=== PATIENT | female | born 1950 | race Caucasian/White ===

== ENCOUNTER → 2017-07-11 | Outpatient (CLI) | payer MEDICARE, OTHER ==
[2017-07-11 18:09] LABS: Blood Urea Nitrogen 14 mg/dL (7-17); Non-African American GFR(MDRD) >60 (>60 ml/min/1.73 sqM)
--- NOTE | 2017-07-11 19:10 | CT ---
EXAMINATION TYPE: CT abdomen wo/w con DATE OF EXAM: 07/11/2017 COMPARISON: 06/11/2015 HISTORY: Follow up for renal CA. CT DLP: 1128.7 mGycm Automated exposure control for dose reduction was used. TECHNIQUE: Helical acquisition of images was performed from the lung bases through the top of iliac crest to include entire abdomen. CONTRAST: Performed with Oral Contrast and without and with IV Contrast, patient injected with 100 mL of Omnipa que 300. FINDINGS: \Lung bases are clear of consolidation. There is no pleural effusion. Heart size is normal. Liver spleen pancreas appear normal. Bile ducts are not dilated. Gallbladder is contracted. There is no adrenal mass. Kidneys have normal size. There is some cortical thinning on the anterior r ight kidney. This appears decreased compared to last exam. There is no hydronephrosis. There is no ev idence of a renal mass. Ureters are not dilated. There is no retroperitoneal adenopathy. Abdominal ao rta is atheromatous. I see no intestinal wall thickening. There are no dilated loops. Appendix appears normal. Stomach zahida ears normal. I see no focal bone destruction. IMPRESSION: THERE IS FOCAL ATROPHY OF THE ANTERIOR RIGHT KIDNEY. NO EVIDENCE OF RECURRENT TUMOR. THE AREA OF LASHANDA ICAL THINNING MEASURES 2 CM IN LENGTH AND APPEARS DECREASED IN SIZE COMPARED TO LAST EXAM. ATHEROSCLEROTIC VASCULAR DISEASE.
== END | disposition home or self-care (01) ==
LOC: RADCTMAIN 17:35
PROVIDERS: ATTEND Urology
DX: N26.1 Atrophy of kidney (terminal) (principal); C64.1 Malignant neoplasm of right kidney, except renal pelvis; I70.90 Unspecified atherosclerosis
CPT/HCPCS: 82565; 84520; 74170; 36415; Q9967

== ENCOUNTER → 2017-10-17 | Outpatient (CLI) | payer MEDICARE, OTHER ==
--- NOTE | 2017-10-18 04:59 | CONS ---
CONSULTATION This is a consultation for obstructive sleep apnea. This is a 67-year-old female patient who was diagnosed having obstructive sleep apnea more than 5 years ago. The patient has a CPAP unit, a ResMed S9 series, which is set at a pressure of 6 cm of water. The original sleep study was done in June 2013. This was done at [facility] in [place]. The patient demonstrated a total of 2 central apneas, 0 obstructive apneas, 1 mixed apnea, and 26 partial obstructive apneas and apnea-hypopnea index was 5.9. The patient had an arousal index of 7.3. Lowest pulse ox was 86% and based on that, the patient was placed on a CPAP pressure of 6 cm of water. She is using a Mirage FX nasal pillow. Over the past 5 years, the patient did not have any regular follow up nor she had seen her sleep physician and she is coming in for some difficulty tolerating her CPAP machine. Apparently the patient has been waking up quite a bit in the middle of the night and her treatment has not been as successful as it was a few years back. She is not sure if she has gained any significant amount of weight over the years. She is a chronic smoker and she has underlying COPD. At times she is snoring while on treatment and she has been told to stop breathing during sleep. She is waking up with dry mouth. She goes to bed between 8 to 9 p.m. and wakes up at 4 a.m. in the morning. She is currently retired averaging more than 6 hours of CPAP use per night based on the compliance data that was collected over the past 30 days. PAST MEDICAL HISTORY: 1. Obstructive sleep apnea. 2. COPD. 3. Hyperlipidemia. 4. Kidney cancer with a previous right nephrectomy. SURGICAL HISTORY: Surgical history includes right nephrectomy partial, tubal ligation, feet surgery bilaterally. ALLERGIES: Allergies are not known of. OUTPATIENT MEDICATION LIST: Outpatient medication list includes fish oil, benazepril 40 mg p.o. q. day, Norvasc 10 mg p.o. q. day, Voltaren 75 mg p.o. q. day and Zocor 20 mg p.o. q. day. SOCIAL HISTORY: Chronic smoker, 1 pack of cigarettes a day. No history of alcoholism. No history of IV drugs. FAMILY HISTORY: Noncontributory. It is negative for obstructive sleep apnea. REVIEW OF SYSTEMS: Twelve-point review of system was done. Positive findings were all mentioned above in the history of present illness. PHYSICAL EXAMINATION: BP is 143/81, pulse 78, respirations 20, temperature 97.8 saturation 95% on room air. Weight is 180. Height is 5 feet 4 inches. Neck size 14. Granville score 17. BMI 30.8. GENERAL APPEARANCE: Calm, comfortable. She is in no acute distress. Head is atraumatic, normocephalic. Neck is short, supple. Crowding of posterior pharynx with micrognathia. LUNGS: Clear to auscultation. HEART: Sounds regular rate and rhythm. Normal S1, S2. No S3, S4. No murmurs. ABDOMEN: Soft, nontender. No organomegaly. EXTREMITIES: No edema. No cyanosis or clubbing. IMPRESSION: 1. Mild obstructive sleep apnea based on the sleep study that was done in 2012. The patient has an apnea-hypopnea index of 5.9. The patient is receiving CPAP therapy at a pressure of 6 cm of water. Treatment has been suboptimal as the patient is having difficulties in tolerating the CPAP and she is waking up constantly in the middle of the night and she has becoming more somnolent and sleepy. Granville score is 17. 2. Hypersomnia, rule out suboptimal treatment with CPAP therapy. 3. Chronic obstructive pulmonary disease. 4. Smoking. 5. Hyperlipidemia. 6. History of renal cell cancer with a partial nephrectomy on the right. PLAN: 1. We will do a home sleep study to assess the presence and severity of obstructive sleep apnea. 2. It is very much likely the patient will need a followup CPAP titration to adjust the pressures. We will go in a stepwise fashion. Initially I would like to confirm the presence of sleep apnea knowing that the disease was very mild at baseline and if present and if it is severe will make CPAP adjustments. MMODL / IJN: [id number] /
== END | disposition home or self-care (01) ==
LOC: SLEEP 15:54
PROVIDERS: ATTEND Internal Medicine Critical Care Medicine
DX: G47.33 Obstructive sleep apnea (adult) (pediatric) (principal); G47.10 Hypersomnia, unspecified; J44.9 Chronic obstructive pulmonary disease, unspecified; F17.200 Nicotine dependence, unspecified, uncomplicated; E78.5 Hyperlipidemia, unspecified; Z85.528 Personal history of other malignant neoplasm of kidney; Z90.5 Acquired absence of kidney; Z79.1 Long term (current) use of non-steroidal anti-inflammatories (NSAID); Z79.899 Other long term (current) drug therapy
CPT/HCPCS: 99204; 99211

== ENCOUNTER → 2017-12-12 | Outpatient (CLI) | payer MEDICARE, OTHER ==
--- NOTE | 2017-12-12 17:52 | PN ---
PROGRESS NOTE This is a 67-year-old female patient with known history of mild obstructive sleep apnea that was diagnosed back in 2012. At that time the patient had an AHI of 5.9 and she was offered CPAP therapy. She was placed on a CPAP pressure of 6 cm of water. The patient benefitted from the treatment, and over the past 4 years the patient has been very regularly using her CPAP machine without any interruption. Recently she came in for re-evaluation. I was interested to see if the patient had any residual obstructive sleep apnea. Based on that, I performed a home sleep study. The patient demonstrated nocturnal oxygen desaturation where she spent approximately half of the sleep time at a pulse ox of 90% and below. Her average pulse ox was 89% and her lowest pulse ox was 84%. Nevertheless, her AHI was less than 5; specifically 3.3. I discussed the results of the sleep study with the patient. The patient wants to continue with her CPAP therapy. She feels very comfortable and she reports her sleep quality being better while on CPAP. Based on that, she wants to continue with the treatment and she decided not to give up the treatment at this point in time. She is in need of equipment, which I do not think she will qualify for through the [facility]. I gave her samples of AirFit P10 nose pillows to use along with her ResMed S9 CPAP unit which is set at a pressure of 6 cm of water with a C-flex of 3. She is also known to have renal cell carcinoma with a previous nephrectomy and she has hyperlipidemia and continues to smoke cigarettes. Her weight has been stable for now. BP is 146/77, pulse 80, respirations 16, temperature 98.4, saturation 95% on room air. BMI 30.7. Weight is 179. GENERAL APPEARANCE: Calm, comfortable. No acute distress. Head is atraumatic, normocephalic. Neck is supple. There is no JVD. No goiter or neck masses. LUNGS: Clear to auscultation. Heart sounds are regular rate and rhythm. Normal S1, S2. No S3, S4. No murmurs. Abdomen is soft, nontender. No organomegaly. EXTREMITIES: No edema. No cyanosis or clubbing. NEUROLOGIC: The patient is alert and oriented x3. There is no focal neurological deficit. PSYCHIATRIC: Negative for anxiety or depression. SKIN: Negative for any wounds or ulceration. IMPRESSION: 1. Obstructive sleep apnea, mild at baseline, with an AHI of 5.9. Repeat home sleep study showed no major sleep breathing disorder, where her AHI dropped down to 3.3. Nevertheless, the patient continues to benefit from the treatment and she wants to stay on the treatment, knowing that her sleep quality gets worse while off treatment. 2. Chronic obstructive pulmonary disease. 3. Nocturnal oxygen desaturation, as the patient spent approximately 53% of sleep time with a pulse ox of less than 90%. 4. Hyperlipidemia. 5. Renal cell carcinoma with a previous nephrectomy. PLAN: I do not see any problems with this patient concerning her CPAP treatment. Even though her sleep apnea is mild, the patient continues to benefit from the treatment. I offered her AirFit P10 nose pillows and I gave her 2 sample masks. I also gave her the appropriate filters. She will continue using her CPAP and she will see me back in a year's time in followup. GABRIELA / SVEN: [id number] /
== END | disposition home or self-care (01) ==
LOC: SLEEP 16:21
PROVIDERS: ATTEND Internal Medicine Critical Care Medicine
DX: Z53.9 Procedure and treatment not carried out, unspecified reason (principal)

== ENCOUNTER 2018-04-15 10:56 | Emergency (ER) | payer MEDICARE, OTHER ==
[2018-04-15] MEDS ORDERED: LORazepam 2 MG/ML INJ IV STA (11:15)
[2018-04-15] MEDS ORDERED: SODIUM CHLORIDE 0.9% 1,000 ML IV STA (11:15)
[2018-04-15] MEDS ORDERED: ONDANSETRON 4 MG/2 ML VIAL IVP STA (11:15)
[2018-04-15] MEDS ORDERED: MECLIZINE 12.5 MG TAB PO STA (11:15)
--- NOTE | 2018-04-15 11:18 | ED ---
General Adult HPI - General Chief complaint: Dizziness Stated complaint: dizziness Time Seen by Provider: 04/15/18 10:57 Source: patient, EMS, RN notes reviewed, old records reviewed Mode of arrival: EMS Limitations: no limitations - History of Present Illness Initial comments: 67-year-old female presenting with sudden onset lightheadedness or vertigo. Patient was standing in her kitchen when she suddenly developed vertigo symptoms. She states the room was spinning. She felt significant nausea with several episodes of vomiting. Patient states she also had one episode of diarrhea. At the time my evaluation patient states she still feels quite lightheaded. She has persistent nausea. She also complains of generalized weakness. Denies focal weakness or numbness. Denies any pain complaints. Denies headache. Denies chest pain. Denies abdominal pain. Denies extremity pain. Patient has past medical history of hypertension and hypercholesterolemia. - Related Data Home Medications Medication Instructions Recorded Confirmed Benazepril HCl 40 mg PO DAILY 04/15/18 04/15/18 Diclofenac Sodium [Voltaren] 75 mg PO DAILY PRN 04/15/18 04/15/18 Fish Oil/Dha/Epa [Fish Oil 1,200 1 cap PO DAILY 04/15/18 04/15/18 mg Fish Oil] Omeprazole 20 mg PO DAILY 04/15/18 04/15/18 Simvastatin [Zocor] 40 mg PO HS 04/15/18 04/15/18 amLODIPine [Norvasc] 10 mg PO DAILY 04/15/18 04/15/18 Previous Rx's Medication Instructions Recorded Meclizine [Antivert] 25 mg PO TID PRN #30 tab 04/15/18 Allergies Allergy/AdvReac Type Severity Reaction Status Date / Time No Known Allergies Allergy Verified 04/15/18 12:42 Review of Systems ROS Statement: Those systems with pertinent positive or pertinent negative responses have been documented in the HPI. ROS Other: All systems not noted in ROS Statement are negative. Past Medical History Past Medical History: Cancer, Hypertension, Osteoarthritis (OA) Additional Past Medical History / Comment(s): kidney cancer History of Any Multi-Drug Resistant Organisms: None Reported Past Surgical History: Orthopedic Surgery, Tubal Ligation Additional Past Surgical History / Comment(s): right kidney surgery Past Psychological History: No Psychological Hx Reported Smoking Status: Current every day smoker Past Alcohol Use History: None Reported Past Drug Use History: None Reported General Exam Limitations: no limitations General appearance: alert, in no apparent distress Head exam: Present: atraumatic, normocephalic Eye exam: Present: normal appearance, PERRL, EOMI. Absent: nystagmus ENT exam: Present: normal exam, mucous membranes moist Neck exam: Present: normal inspection. Absent: tenderness, meningismus Respiratory exam: Present: normal lung sounds bilaterally, respiratory distress Cardiovascular Exam: Present: regular rate, normal rhythm GI/Abdominal exam: Present: soft. Absent: distended, tenderness, guarding Extremities exam: Present: normal inspection, normal capillary refill, other ( Distal pulses 2+). Absent: pedal edema Back exam: Present: normal inspection, full ROM Neurological exam: Present: alert, oriented X3, CN II-XII intact, other (No ataxia in the upper extremities, finger-nose is normal.). Absent: motor sensory deficit Psychiatric exam: Present: normal affect, normal mood Skin exam: Present: warm, dry, intact. Absent: cyanosis, diaphoretic Course Vital Signs 04/15/18 04/15/18 10:57 12:30 Temperature 96.8 F L Pulse Rate 82 71 Respiratory 20 20 Rate Blood Pressure 182/84 143/69 O2 Sat by Pulse 96 99 Oximetry EKG Findings - EKG Comments: EKG Findings:: EKG: Normal sinus rhythm, rate of 64, TX interval 158, QRS duration 84, QTC 443, no ST segment elevation or depression. Medical Decision Making - Medical Decision Making 67-year-old female presenting with signs and symptoms suggestive of vertigo. Patient has a nonfocal neurologic exam. No ataxia. Head CT is obtained, negative for intracranial hemorrhage or mass effect. There is suggestion of a left mastoiditis. Patient clinically does not have mastoiditis. There is no erythema, no tenderness over the left mastoid. Chest x-ray is negative. Hemoglobin stable at 16, normal white blood cell count, normal CMP, normal lactic acid, negative troponin. Urinalysis is negative. Patient is given meclizine and Zofran, and Ativan. She is also given normal saline. On reevaluation she is feeling much better. She is reevaluated, neurologic standpoint, she has no ataxia, nonfocal exam. Symptoms are nearly completely resolved. She is offered observation for continued symptomatically treatment, she declines, she will prefer to be discharged home and will return with worsening or changing symptoms. - Lab Data Result diagrams: 04/15/18 11:30 04/15/18 11:30 Lab Results 04/15/18 04/15/18 04/15/18 Range/Units 11:30 11:30 11:30 WBC 7.3 (3.8-10.6) k/uL RBC 5.15 (3.80-5.40) m/uL Hgb 16.1 H (11.4-16.0) gm/dL Hct 49.4 H (34.0-46.0) % MCV 96.0 (80.0-100.0) fL MCH 31.3 (25.0-35.0) pg MCHC 32.6 (31.0-37.0) g/dL RDW 12.8 (11.5-15.5) % Plt Count 228 (150-450) k/uL Neutrophils % 68 % Lymphocytes % 24 % Monocytes % 4 % Eosinophils % 2 % Basophils % 0 % Neutrophils # 4.9 (1.3-7.7) k/uL Lymphocytes # 1.7 (1.0-4.8) k/uL Monocytes # 0.3 (0-1.0) k/uL Eosinophils # 0.2 (0-0.7) k/uL Basophils # 0.0 (0-0.2) k/uL Sodium 141 (137-145) mmol/L Potassium 4.5 (3.5-5.1) mmol/L Chloride 107 (98-107) mmol/L Carbon Dioxide 24 (22-30) mmol/L Anion Gap 10 mmol/L BUN 12 (7-17) mg/dL Creatinine 0.56 (0.52-1.04) mg/dL Est GFR (CKD-EPI)AfAm >90 (>60 ml/min/1.73 sqM) Est GFR (CKD-EPI)NonAf >90 (>60 ml/min/1.73 sqM) Glucose 147 H (74-99) mg/dL Plasma Lactic Acid Fernie 1.4 (0.7-2.0) mmol/L Calcium 9.5 (8.4-10.2) mg/dL Total Bilirubin 0.7 (0.2-1.3) mg/dL AST 36 (14-36) U/L ALT 35 (9-52) U/L Alkaline Phosphatase 75 (38-126) U/L Troponin I (0.000-0.034) ng/mL Total Protein 7.6 (6.3-8.2) g/dL Albumin 4.6 (3.5-5.0) g/dL Urine Color Urine Appearance (Clear) Urine pH (5.0-8.0) Ur Specific Holiday (1.001-1.035) Urine Protein (Negative) Urine Glucose (UA) (Negative) Urine Ketones (Negative) Urine Blood (Negative) Urine Nitrite (Negative) Urine Bilirubin (Negative) Urine Urobilinogen (<2.0) mg/dL Ur Leukocyte Esterase (Negative) 04/15/18 04/15/18 Range/Units 11:30 12:17 WBC (3.8-10.6) k/uL RBC (3.80-5.40) m/uL Hgb (11.4-16.0) gm/dL Hct (34.0-46.0) % MCV (80.0-100.0) fL MCH (25.0-35.0) pg MCHC (31.0-37.0) g/dL RDW (11.5-15.5) % Plt Count (150-450) k/uL Neutrophils % % Lymphocytes % % Monocytes % % Eosinophils % % Basophils % % Neutrophils # (1.3-7.7) k/uL Lymphocytes # (1.0-4.8) k/uL Monocytes # (0-1.0) k/uL Eosinophils # (0-0.7) k/uL Basophils # (0-0.2) k/uL Sodium (137-145) mmol/L Potassium (3.5-5.1) mmol/L Chloride (98-107) mmol/L Carbon Dioxide (22-30) mmol/L Anion Gap mmol/L BUN (7-17) mg/dL Creatinine (0.52-1.04) mg/dL Est GFR (CKD-EPI)AfAm (>60 ml/min/1.73 sqM) Est GFR (CKD-EPI)NonAf (>60 ml/min/1.73 sqM) Glucose (74-99) mg/dL Plasma Lactic Acid Fernie (0.7-2.0) mmol/L Calcium (8.4-10.2) mg/dL Total Bilirubin (0.2-1.3) mg/dL AST (14-36) U/L ALT (9-52) U/L Alkaline Phosphatase (38-126) U/L Troponin I <0.012 (0.000-0.034) ng/mL Total Protein (6.3-8.2) g/dL Albumin (3.5-5.0) g/dL Urine Color Light Yellow Urine Appearance Clear (Clear) Urine pH 7.5 (5.0-8.0) Ur Specific Holiday 1.009 (1.001-1.035) Urine Protein Negative (Negative) Urine Glucose (UA) Negative (Negative) Urine Ketones Negative (Negative) Urine Blood Negative (Negative) Urine Nitrite Negative (Negative) Urine Bilirubin Negative (Negative) Urine Urobilinogen <2.0 (<2.0) mg/dL Ur Leukocyte Esterase Negative (Negative) Disposition Clinical Impression: Vertigo Disposition: HOME SELF-CARE Condition: Good Instructions: Dizziness (ED), Vertigo (ED) Prescriptions: Meclizine [Antivert] 25 mg PO TID PRN #30 tab PRN Reason: Vertigo Is patient prescribed a controlled substance at d/c from ED?: No Referrals: Suleman Yadav MD [Primary Care Provider] - 1-2 days Time of Disposition: 13:46
[2018-04-15 11:51] LABS: Basophils % (A) 0 %; Eosinophils # (A) 0.2 k/uL (0-0.7); Eosinophils % (A) 2 %; HCT 49.4 % (34.0-46.0); HGB 16.1 gm/dL (11.4-16.0); Lymphocytes # (A) 1.7 k/uL (1.0-4.8); Lymphocytes % (A) 24 %; MCH 31.3 pg (25.0-35.0); MCHC 32.6 g/dL (31.0-37.0); Mean Platelet Volume 6.8; Monocytes # (A) 0.3 k/uL (0-1.0); Monocytes % (A) 4 %; Neutrophils # (A) 4.9 k/uL (1.3-7.7); Neutrophils % (A) 68 %; Platelet Count 228 k/uL (150-450); RBC 5.15 m/uL (3.80-5.40); RDW 12.8 % (11.5-15.5); WBC 7.3 k/uL (3.8-10.6)
[2018-04-15 12:09] LABS: Albumin 4.6 g/dL (3.5-5.0); Anion Gap 10 mmol/L; Calcium 9.5 mg/dL (8.4-10.2); Carbon Dioxide 24 mmol/L (22-30); Chloride 107 mmol/L (98-107); Glucose 147 mg/dL (74-99); Sodium 141 mmol/L (137-145); Total Bilirubin 0.7 mg/dL (0.2-1.3); Total Protein 7.6 g/dL (6.3-8.2)
[2018-04-15 12:10] LABS: ALT 35 U/L (9-52); AST 36 U/L (14-36); Alkaline Phosphatase 75 U/L (38-126); Blood Urea Nitrogen 12 mg/dL (7-17); Potassium 4.5 mmol/L (3.5-5.1)
--- NOTE | 2018-04-15 12:12 | CT ---
EXAMINATION TYPE: CT brain wo con DATE OF EXAM: 04/15/2018 COMPARISON: NONE HISTORY: Dizziness and nausea. History of renal cancer CT DLP: 1047.1 mGycm Automated exposure control for dose reduction was used. FINDINGS: There is mild atrophy. There is diffuse periventricular white matter lucency consistent with chronic white matter ischemic change. There is no focal lesion, mass effect or midline shift identified I do not see evidence of intracranial blood. There is some mucoperiosteal thickening involving the ethmoid sinuses. There is some fluid in the lef t mastoid air cells. The bony calvarium is intact. IMPRESSION: 1. NO ACUTE INTRACRANIAL ABNORMALITY. 2. MILD DEGENERATIVE CHANGE. 3. 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 4. LEFT-SIDED MASTOIDITIS.
--- NOTE | 2018-04-15 12:14 | XR ---
EXAMINATION TYPE: XR chest 2V DATE OF EXAM: 04/15/2018 HISTORY: syncope. REFERENCE: NONE. FINDINGS: There is minimal atelectasis at the left lung base. The lungs are otherwise clear. Pleural spaces are clear. The heart is not enlarged. IMPRESSION: MINIMAL ATELECTASIS, LEFT LUNG BASE.
[2018-04-15 12:45] LABS: Appearance,Urine Clear (Clear); Bilirubin,Urine Negative (Negative); Blood,Urine Negative (Negative); Color,Urine Light Yellow; Glucose,Urine (UA) Negative (Negative); Ketones,Urine Negative (Negative); Leukocyte Esterase,Urine Negative (Negative); Nitrite,Urine Negative (Negative); PH, Urine 7.5 (5.0-8.0); Protein,Urine Negative (Negative); Specific Gravity,Urine 1.009 (1.001-1.035); Urobilinogen,Urine <2.0 mg/dL (<2.0)
[2018-04-15 14:18] VITALS: BP 132/77; PULSE 70; RESP 18; TEMP 98
== END 2018-04-15 14:19 | disposition home or self-care (01) ==
LOC: EC 10:56
DX: R42 Dizziness and giddiness (principal); R11.2 Nausea with vomiting, unspecified; E78.00 Pure hypercholesterolemia, unspecified; I10 Essential (primary) hypertension; F17.200 Nicotine dependence, unspecified, uncomplicated; Z85.528 Personal history of other malignant neoplasm of kidney; Z53.29 Procedure and treatment not carried out because of patient's decision for other reasons; Z79.899 Other long term (current) drug therapy
CPT/HCPCS: 36415; 93005; 80053; 83605; 84484; 85025; 81003; 71046; 70450; 99285; 96374; 96375; 96361; J2060; J2405

== ENCOUNTER → 2018-06-27 | Outpatient (CLI) | payer MEDICARE, OTHER ==
[2018-06-27 13:56] LABS: Blood Urea Nitrogen 16 mg/dL (7-17)
--- NOTE | 2018-06-27 15:57 | XR ---
EXAMINATION TYPE: XR chest 2V DATE OF EXAM: 06/27/2018 COMPARISON: 04/15/2018 HISTORY: Renal cell carcinoma. Surveillance. TECHNIQUE: Frontal and lateral views of the chest are obtained. FINDINGS: There is no focal air space opacity, pleural effusion, or pneumothorax seen. There is mini mal left basilar atelectasis at both costophrenic angle, unchanged from the prior. There is a mild S- shaped scoliotic curvature of the thoracolumbar spine. The cardiac silhouette size is within normal l imits. The osseous structures are intact. IMPRESSION: Persistent minimal left basilar subsegmental atelectasis. No acute cardiopulmonary proces s.
--- NOTE | 2018-06-27 16:47 | CT ---
EXAMINATION TYPE: CT abdomen w con DATE OF EXAM: 06/27/2018 COMPARISON: Comparison to CT abdomen pelvis 07/11/2017 HISTORY: Rt Renal Cell Carcinoma CT DLP: 785.6 mGycm Automated exposure control for dose reduction was used. TECHNIQUE: Helical acquisition of images was performed from the lung bases through the top of iliac crest to include entire abdomen. CONTRAST: Performed with Oral Contrast and with IV Contrast, patient injected with 100 mL of Isovue 300. FINDINGS: LUNG BASES: No significant abnormality is appreciated. LIVER/GB: Liver shows low attenuation which may be due to hepatic steatosis. Gallbladder is contracte d.. PANCREAS: No significant abnormality is seen. SPLEEN: No significant abnormality is seen. ADRENALS: No significant interval change is seen. KIDNEYS: No significant abnormality is seen. BOWEL: No significant abnormality is seen. LYMPH NODES: No significant abnormality is appreciated. OSSEOUS STRUCTURES: No significant abnormality is seen. FREE AIR: No Free Air visible ASCITES: None visible. RETROPERITONEAL ADENOPATHY: No Retroperitoneal Adenopathy visible. OTHER: Atheromatous change present within the aorta. IMPRESSION: STABLE EXAM. CORRELATE FOR HEPATIC STEATOSIS. NO EVIDENT RECURRENCE.
== END | disposition home or self-care (01) ==
LOC: RADCTMAIN 13:07
PROVIDERS: ATTEND Urology
DX: Z08 Encounter for follow-up examination after completed treatment for malignant neoplasm (principal); J98.11 Atelectasis; Z90.5 Acquired absence of kidney; Z85.528 Personal history of other malignant neoplasm of kidney
CPT/HCPCS: 82565; 84520; 71046; 74160; 36415; Q9967

== ENCOUNTER → 2019-06-24 | Outpatient (CLI) | payer MEDICARE, OTHER ==
[2019-06-24 11:31] LABS: African American GFR (CKD) >90 (>60 ml/min/1.73 sqM); Blood Urea Nitrogen 12 mg/dL (7-17); Non-African American GFR(CKD) >90 (>60 ml/min/1.73 sqM)
--- NOTE | 2019-06-24 11:38 | XR ---
EXAMINATION TYPE: XR chest 2V DATE OF EXAM: 06/24/2019 COMPARISON: 06/27/2018 HISTORY: Renal cell carcinoma TECHNIQUE: Frontal and lateral views of the chest are obtained. FINDINGS: There is no focal air space opacity, pleural effusion, or pneumothorax seen. Chronic left lower lung platelike atelectasis and probable left basilar atelectasis at the costophrenic angle. Th e cardiac silhouette size is within normal limits. The osseous structures are intact. IMPRESSION: Nodular density at the left lung base near the costophrenic angle likely relates to atel ectasis although CT is recommended in this patient with renal cell carcinoma to exclude small pulmona ry nodule.
--- NOTE | 2019-06-24 12:53 | CT ---
EXAMINATION TYPE: CT abdomen wo/w con DATE OF EXAM: 06/24/2019 HISTORY: Renal CA follow up, history of partial nephrectomy. CT DLP: 1208.2mGycm Automated Exposure Control for Dose Reduction was Utilized. CONTRAST: CT scan of the abdomen is performed with oral and without and with IV Contrast, patient injected with 100 mL of Isovue 300. COMPARISON: CT abdomen June 27, 2018 and older studies. FINDINGS: LUNG BASES: No significant abnormality is appreciated. LIVER/GB: Small dependent gallstones in the gallbladder. PANCREAS: No significant abnormality is seen. SPLEEN: No significant abnormality is seen. ADRENALS: No significant abnormality is seen. KIDNEYS: Noncontrast images show subtle linear density anteriorly midpole level at site of cortical s carring axial image 30 near site of treated neoplasm. Postcontrast images show symmetric cortical med ullary uptake and excretion bilaterally without evidence of concerning solid or cystic renal mass in either kidney. No hydronephrosis is evident. BOWEL: Normal-appearing appendix from cecum. No suspicious small or large bowel dilatation. Oral cont rast does not reach terminal ileum. LYMPH NODES: No greater than 1cm abdominal or pelvic lymph nodes are appreciated. OSSEOUS STRUCTURES: Slight levoconvex scoliotic curvature. Moderate multilevel spurring and disc spac e narrowing. OTHER: Moderate calcified plaque of the infrarenal aorta extends into branch vessels. IMPRESSION: No suspicious new mass or adenopathy to suggest neoplastic recurrence.
== END | disposition home or self-care (01) ==
LOC: RADCTMAIN 10:56
PROVIDERS: ATTEND Urology
DX: C64.1 Malignant neoplasm of right kidney, except renal pelvis (principal); R91.1 Solitary pulmonary nodule
CPT/HCPCS: 82565; 84520; 71046; 74170; 36415; Q9967

== ENCOUNTER → 2019-07-09 | Outpatient (CLI) | payer MEDICARE, OTHER ==
[2019-07-09 08:18] LABS: African American GFR (CKD) >90 (>60 ml/min/1.73 sqM); Blood Urea Nitrogen 13 mg/dL (7-17)
--- NOTE | 2019-07-09 09:52 | CT ---
EXAMINATION TYPE: CT chest w con DATE OF EXAM: 07/09/2019 COMPARISON: CT abdomen and pelvis 06/24/2019 and 12/11/2014 HISTORY: 69-year-old female Left lung base nodule, Renal cell carcinoma TECHNIQUE: Contiguous axial scanning of the chest after the administration of 100 ml mL of Isovue 300 . Coronal/sagittal reconstructions performed. CT DLP: 514mGycm. Automatic exposure control utilized for a dose reduction. FINDINGS: The heart is normal size. There is a small anterior pericardial effusion measuring 7 mm thick. Scatte red mild coronary vessel calcifications. Aorta normal caliber with mild atherosclerotic arch calcifications and conventional arch vessel branc vinh anatomy. No thoracic lymphadenopathy by CT size criteria. Band of atelectasis or scar within the bilateral upper lobes additional strandy atelectasis inferior lingula and left base. No suspicious pulmonary nodules or masses. No consolidation or pleural effusion. Suspect tiny dependent gallstones. Stable 1.4 cm peripheral arterial blush of contrast in the left he patic dome, seen back to 12/11/2014. Bones: Moderate degenerative disc disease mid thoracic spine. IMPRESSION: 1. Small anterior pericardial effusion measuring 7 mm thick of questionable clinical significance. 2. No suspicious pulmonary nodules or masses. 3. Suspect a few tiny gallstones.
== END | disposition home or self-care (01) ==
LOC: RADCTMAIN 07:32
PROVIDERS: ATTEND Internal Medicine
DX: C64.1 Malignant neoplasm of right kidney, except renal pelvis (principal)
CPT/HCPCS: 82565; 84520; 71260; 36415; Q9967

== ENCOUNTER → 2020-09-25 | Outpatient (CLI) | payer MEDICARE ==
--- NOTE | 2020-09-25 11:13 | MR ---
EXAMINATION TYPE: MR lumbar spine wo con DATE OF EXAM: 09/25/2020 COMPARISON: NONE HISTORY: Low back pain TECHNIQUE: T1 and T2 axial and sagittal images of the lumbar spine are submitted. FINDINGS: There is no abnormal signal seen within the visualized spinal cord or paraspinal soft tissu es. Curvature of the spine. Aorta of normal caliber. At T12-L1 there is degenerative disc disease and broad-based disc bulging but no canal stenosis. No f oraminal encroachment. At L1-2 there is degenerative disc disease and facet arthropathy. No disc herniation or canal stenosi s. Neural foramina patent. At L2-3 there is no disc disc herniation or canal stenosis. Mild left lateral disc bulging but no for aminal encroachment. At L3-4 there is mild degenerative disc disease with ligamentum flavum and facet hypertrophy. Mild br oad-based disc bulging and mild bilateral foraminal encroachment. No Canal stenosis. At L4-5 there is moderate degenerative disc disease with advanced facet arthropathy and ligamentum fl avum hypertrophy. Broad-based disc protrusion centrally results in mild central stenosis and bilatera l mild to moderate foraminal encroachment. At L5-S1 there is there is a grade 1 anterolisthesis likely degenerative due to advanced facet arthro tyra. Results in mild to moderate bilateral foraminal encroachment greater on the left. Broad-based disc bulging noted with no canal stenosis. IMPRESSION: 1. Multilevel degenerative disc disease and disc bulging as discussed above. There is a grade 1 anter olisthesis of L5 on S1 with bilateral foraminal encroachment as discussed above. 2. Mild left lateral disc bulging L2-L3 but no evidence of nerve root contact. 3. Disc bulging T12-L1 but no canal stenosis. 4. Broad-based disc protrusion L4-L5 results in mild central stenosis and bilateral foraminal encroac hment. 5. Mild broad-based disc bulging L3-L4 with mild bilateral foraminal encroachment.
== END | disposition home or self-care (01) ==
LOC: RADMRIMAIN 10:06
PROVIDERS: ATTEND Internal Medicine
DX: M48.061 Spinal stenosis, lumbar region without neurogenic claudication (principal); M51.26 Other intervertebral disc displacement, lumbar region; M43.16 Spondylolisthesis, lumbar region; M51.36 Other intervertebral disc degeneration, lumbar region
CPT/HCPCS: 72148

== ENCOUNTER → 2021-05-05 | Outpatient (CLI) | payer MEDICARE ==
[2021-05-05 09:55] VITALS: BP 123/84; PULSE 83; RESP 20; TEMP 97.7
--- NOTE | 2021-05-05 09:59 | P.PAINCN ---
History of Present Illness - Reason for Consult Consult date: 05/05/21 - History of Present Illness This is a 70-year-old patient referred by Dr. Mejia with a chief complaint of chronic pain in the low back mostly in the right hip but also endorses left sided leg pain. Pain started 1 year ago and has been gradually getting worse. Patient most recently had bilateral medial branch blocks of [facility] in February with 80-90% relief for 4-5 days. Overall her pain complaints are in the location as mentioned above. She denies any significant radicular symptoms. She also endorses stiffness in the lumbar spine which is worse in the morning and any change of position makes her pain worse. She is only able to walk about a half a block without needing to stop and feeling some pain and weakness in her right lower extremity. Has done PT 2.5 months ago. Continues to do HEP and stretches with some benefit. As mentioned above had bilateral L4-5 and L5-S1 medial branch blocks recently with a 90% relief. She also had a caudal epidural steroid injection in December which gave her 100% relief for 5 days. Patient denies adverse drug effects from medications. Patient also denies new-onset weakness, bowel/bladder incontinence, or any other signs or symptoms of cauda equina syndrome. There are no signs of acute intoxication, and no indications of medication diversion or overuse. In addition to above, 13-point review of systems is also negative for chest pain, shortness of breath, changes in vision, changes in hearing, new onset weakness, abdominal pain, diarrhea, extreme fatigue, malaise, fever, skin changes, homicidal or suicidal ideation, or bowel or bladder incontinence. Physical exam: Vital Signs: Reviewed in EMR GENERAL: Well appearing, in no acute distress PSYCH: Mood and affect is appropriate. Awake, alert, and oriented SKIN: Skin color, texture, turgor normal, no rashes or lesions HEENT: Normocephalic, atraumatic. EOM intact CV: No pedal edema RESP: Respirations are unlabored, no audible wheezing GI: Abdomen non-distended MUSCULOSKELETAL: Bilateral upper and lower extremity strength is normal and symmetric. No atrophy or tone abnormalities are noted. Lumbar spine: Straight leg raising in the sitting position is negative for radicular pain. pain to palpation over the lumbar spine and paraspinous muscles. positive for pain with facet loading and back extension/rotation. Limited lumbar extension due to pain Buttocks: No pain to palpation over the PSIS, Asael test is negative Extremities: Peripheral joint ROM is full and pain free without obvious instability or laxity in all four extremities. No edema or skin discolorations noted. Gait: Gait is normal NEUR: Bilateral upper and lower extremity coordination and muscle stretch reflexes are physiologic and symmetric. Negative clonus. No loss of sensation is noted. Cranial nerves are grossly intact. Imaging: Lumbar MRI 09/2020 At L4-L5 there is moderate degenerative disc disease with advanced facet hypertrophy and ligamentum flavum hypertrophy. At L5-S1 there is also advanced facet arthropathy. Assessment: 1. Lumbar spondylosis without myelopathy Plan: - Proceed with bilateral L4-5 and L5-S1 RFA I spent 48 minutes on patient care today. The time was used to review medical records including relevant urine studies and prescription history (MAPs), review of the available imaging, evaluation and examination the patient, coordination of care at the medical staff and if applicable referring physicians, as well as creation of the medical record. Past Medical History Past Medical History: Cancer, Diabetes Mellitus, GERD/Reflux, Hypertension Additional Past Medical History / Comment(s): kidney cancer, diet control diabetic, History of Any Multi-Drug Resistant Organisms: None Reported Past Surgical History: Adenoidectomy, Orthopedic Surgery, Tonsillectomy, Tubal Ligation Additional Past Surgical History / Comment(s): tumor removed from right kidney, eloy heel spurs, Past Anesthesia/Blood Transfusion Reactions: No Reported Reaction Past Psychological History: No Psychological Hx Reported Smoking Status: Current every day smoker Past Alcohol Use History: None Reported Additional Past Alcohol Use History / Comment(s): smokes 1 PPD, has smoked > 50 yrs Past Drug Use History: None Reported - Past Family History Mother Family Medical History: No Reported History Medications and Allergies Home Medications Medication Instructions Recorded Confirmed Type Benazepril HCl 40 mg PO DAILY 04/15/18 05/04/21 History Fish Oil/Dha/Epa [Fish Oil 1,200 1 cap PO DAILY 04/15/18 05/04/21 History mg Fish Oil] Omeprazole 20 mg PO DAILY 04/15/18 05/04/21 History Simvastatin [Zocor] 40 mg PO HS 04/15/18 05/04/21 History amLODIPine [Norvasc] 10 mg PO DAILY 04/15/18 05/04/21 History Cinnamon Bark [Cinnamon] 2,000 mg PO BID 05/04/21 05/04/21 History Ibuprofen 600 mg PO BID 05/04/21 05/04/21 History Multivitamins, Thera [Multivitamin 1 tab PO DAILY 05/04/21 05/04/21 History (formulary)] Allergies Allergy/AdvReac Type Severity Reaction Status Date / Time metformin Allergy Diarrhea Verified 05/04/21 15:15 PQRS Measure Charge Sheet PQRS Narrative: Smoking Status Current every day smoker Pain Intensity [Lower Back] 10 Hx Alcohol Use (MH) No Home Medications: Ambulatory Orders Benazepril HCl 40 mg PO DAILY 04/15/18 Fish Oil/Dha/Epa [Fish Oil 1,200 mg Fish Oil] 1 cap PO DAILY 04/15/18 Omeprazole 20 mg PO DAILY 04/15/18 Simvastatin [Zocor] 40 mg PO HS 04/15/18 amLODIPine [Norvasc] 10 mg PO DAILY 04/15/18 Cinnamon Bark [Cinnamon] 2,000 mg PO BID 05/04/21 Ibuprofen 600 mg PO BID 05/04/21 Multivitamins, Thera [Multivitamin (formulary)] 1 tab PO DAILY 05/04/21
== END ==
LOC: PNWHC3 09:19
PROVIDERS: ATTEND Anesthesiology
DX: M47.816 Spondylosis without myelopathy or radiculopathy, lumbar region (principal); E11.9 Type 2 diabetes mellitus without complications; K21.9 Gastro-esophageal reflux disease without esophagitis; F17.210 Nicotine dependence, cigarettes, uncomplicated; I10 Essential (primary) hypertension; Z79.899 Other long term (current) drug therapy; Z88.8 Allergy status to other drugs, medicaments and biological substances
CPT/HCPCS: 99211

== ENCOUNTER 2021-06-04 07:48 | Day surgery (SDC) | payer MEDICARE ==
[2021-06-01 15:37] VITALS: BMI 28.3
[~2021-06-04 07:48] MED LIST: LACTATED RINGERS 1,000 ML IV SCH
[2021-06-04 08:10] VITALS: TEMP 96.6
[2021-06-04 08:24] LABS: Glucose,Whole Blood 131 mg/dL (75-99)
[2021-06-04] MEDS ORDERED: methylPREDNISolone ACETATE 40 MG/ML 1 ML VIAL ONE (08:37)
[2021-06-04] MEDS ORDERED: fentaNYL (PF) 50 MCG/ML 2 ML AMP ONE (08:37)
[2021-06-04] MEDS ORDERED: ROPIVACAINE 5MG/ML 20ML VIAL ONE (08:37)
[2021-06-04] MEDS ORDERED: MIDAZOLAM 2 MG/2 ML VIAL ONE (08:37)
--- NOTE | 2021-06-04 09:04 | P.PCN ---
Date of Procedure: 06/04/21 Procedure(s) Performed: PREOPERATIVE DIAGNOSIS: 1-Lumbar Spondylosis with Facet Arthropathy without myelopathy. 2- Lumber degenerative disc disease. POSTOPERATIVE DIAGNOSIS: 1- Lumbar Spondylosis with Facet Arthropathy without myelopathy. 2- Lumber degenerative disc disease. PROCEDURES : Bilateral Radiofrequency thermocoagulation, L3 , L4 , and L5 medial branch, with fluoroscopic guidance (fluoroscopy images available in the radiology department) ( to denervate the facet joint at bilateral L4-5 ,and L5-S1 levels ). ANESTHESIA: Monitored anesthesia care as per anesthesia department . EBL: Minimal PROCEDURE INDICATION: The patient with low back pain secondary to lumbar facet arthropathy who had more than 70% relief of her pain with previous diagnostic lumbar medial branch block with bupivacaine. PROCEDURE DESCRIPTION / TECHNIQUE: The patient was seen and identified in the preoperative area. Risks, benefits, complications, including but not limited to risk of infection ,bleeding , allergic reactions to the medications and no complete pain releife , and alternatives were discussed with the patient, the patient agreed to proceed with the procedure and signed the consent. IV was started. Vital signs remained stable throughout the procedure. Patient was taken to the OR and time out was completed. The patient was placed in the prone position on the procedure table. The lumber area was prepped and draped in the usual sterile fashion. . Vital signs were closely monitored during the procedure .IV sedation was used during the procedure to decrease patients anxiety. Using AP and then oblique fluoroscopy, the ``eye of the Jamie dog cor responding to the connection between the superior and transverse articular processes of right L3, L4, and L5 were identified, marked, and localized with 1% lidocaine. Subsequently, a [id number] radiofrequency cannula with a 10- mm active tip was advanced guided by fluoroscopy to each of the``eyes of the Jamie dog at right L3, L4, and L5. Each site then underwent sensory testing at 50 Hz and 0 to 1 volt and motor testing at 2.5 Hz and 0 to 3 volt with local stimulation, but no radicular symptoms down the legs. Thereafter each sites underwent radiofrequency thermocoagulation at 80 degrees celsius for 90 seconds after injecting 0.5 ml of PF Ropivacaine 1ml, then after the thermocoagulation done , 1 ml of the block solution containing Depo-Medrol 20 mg and 3 ml of Ropivacaine 0.5% was injected at the right L3 , L4 , and L5 , levels after negative aspiration of CSF and blood and with no paresthesias. Cannulas were retracted while injecting lidocaine 1% until the needle is out. The same procedure was repeated at the level of Left L3, L4, and L5 levels. At the end of the procedure, the skin was cleansed and bandages were applied. COMPLICATIONS: No acute complications. DISPOSITION / PLANS: The patient was placed in a supine position and transferred to the recovery area in a stable condition for observation and was discharged from the recovery room after meeting discharge criteria. Home discharge instructions given to the patient by the staff. The patient was reexamined prior to discharge. The patient will schedule a follow up in the clinic in 2-4 weeks.
[2021-06-04] MEDS ORDERED: IV FLUID CONTINUATION 1,000 ML IV ONE (09:07)
[2021-06-04 09:08] VITALS: PULSE 77
--- NOTE | 2021-06-04 09:11 | FL ---
EXAMINATION TYPE: FL guided pain mgmt statistic DATE OF EXAM: 06/04/2021 HISTORY: Fluoroscopy time 10 seconds of fluoroscopy provided. IMPRESSION: 1. Fluoroscopy time.
[2021-06-04 09:24] VITALS: BP 123/67; RESP 18
== END 2021-06-04 09:39 | disposition home or self-care (01) ==
LOC: ORPAIN 07:48
PROVIDERS: ATTEND Specialist
DX: M47.816 Spondylosis without myelopathy or radiculopathy, lumbar region (principal)
CPT/HCPCS: 64635; 64636; J2250; J1030; J3010; J2795

== ENCOUNTER → 2021-07-05 | Outpatient (CLI) | payer MEDICARE ==
[2021-07-05 13:03] VITALS: BP 125/78; PULSE 93; RESP 18; TEMP 97.7
--- NOTE | 2021-07-05 18:31 | P.PN ---
Subjective Progress Note Date: 07/05/21 Since follow visit for this 71 years old female with a chronic history of severe low back pain, she is diagnosed with lumbar spondylosis with lumbar facet arthropathy, recently we have done RFA medial branch lumbar area, she reported that her pain improved for more than 70%, she is able to ambulate freely, her activity of daily livings improved significantly after RFA, she denies any motor or sensory deficits, she continue to use Motrin 600 mg when necessary twice a day, she denies any side effect of the medication Objective - Vital Signs Vital signs: Vital Signs Temp 97.7 F 07/05/21 12:57 Pulse 93 07/05/21 12:57 Resp 18 07/05/21 12:57 BP 125/78 07/05/21 12:57 Pulse Ox 96 07/05/21 12:57 Intake & Output 07/04/21 07/05/21 07/05/21 18:59 06:59 18:59 Weight 74.843 kg - Exam Physical Examinations : -Constitutiona : Cooperative , not in acute distress . -HEENT : nech : supple , no Lymphadenopathy , normal thyroid size . : eyes : no ptosis , no icterus, no photophobia . - neurologic : Cranial nerve II to XII intact , no focal neurological deffecit . -psychatric : alert , oriented X 3 , appropriate affect , intact judgment and insight . -Lymphatic : no Lymphadenopathy . - musculoskeltal : Lumber spine moter stegnth lower extremities ,thigh and legs 5/5 Right side , 5/5 Left side Assessment and Plan Plan: Assessment and plan=1-lumbar spondylosis with lumbar facet arthropathy. Pain improved significantly after the RFA of the medial branch lumbar area. Patient will follow up in the pain clinic when necessary. - PQRS measures = - Patient's medications are documented in the chart. -Tobacco use is positive, and counseling.Given. -Patient's has received pneumococcal vaccine. -Advanced care planning discussed, patient not eligible. -Opiate contract not signed. -Pain positive and follow-up visit/procedure is scheduled. -Patient's blood pressure measured [125/78 ] , and documented in the record ,and patient will follow up with the primary care. -Patient's weight was measured and body mass index [ ]within the normal limits and counseling was done. and patient instructed to follow-up with the primary care physician. -Patient was not identified as an unhealthy alcohol user Time with Patient: Less than 30
== END ==
LOC: PNWHC3 12:50
PROVIDERS: ATTEND Specialist
DX: M47.816 Spondylosis without myelopathy or radiculopathy, lumbar region (principal); F17.200 Nicotine dependence, unspecified, uncomplicated; Z98.890 Other specified postprocedural states; Z88.8 Allergy status to other drugs, medicaments and biological substances
CPT/HCPCS: 99211

== ENCOUNTER → 2022-04-27 | Outpatient (CLI) | payer MEDICARE ==
--- NOTE | 2022-04-28 08:01 | MR ---
EXAMINATION TYPE: MR lumbar spine wo con DATE OF EXAM: 04/27/2022 COMPARISON: 09/25/2020 HISTORY: Low back pain into left side CONTRAST: 0 mL intravenous Gadavist. TECHNIQUE: Multiplanar, multisequence images of the lumbar spine were acquired. FINDINGS: L5-S1: Broad-based disc bulge is present with moderate anterior thecal sac flattening. No AP spinal c anal stenosis present. Severe Left foraminal stenosis is present, nerve root impingement within the f oramen is identified. Correlate with left S1 radicular symptoms. Mild right foraminal narrowing is pr esent. Facet hypertrophy is present. There is a grade 1 spondylolisthesis of L5 anteriorly on S1. L4-L5: Broad-based disc bulge has moderate anterior thecal sac compression. Facet hypertrophy with li gamentum flavum laxity is present. This has left posterior lateral thecal sac compression. Left wan inal stenosis is present. Disc space narrowing is present. L3-L4: Mild disc bulge is present with anterior thecal sac compression. Facet hypertrophy and ligamen leydi flavum laxity is present with mild posterior lateral thecal sac compression. No AP spinal canal s tenosis is present. Moderate right foraminal narrowing is present. L2-L3: Broad-based disc bulge is present this has mild anterior thecal sac compression. Mild ligament um flavum laxity is present with posterior lateral thecal sac compression on the right. No spinal can al stenosis or neural foraminal stenosis is present L1-L2: No significant disc bulge or disc herniation. No spinal canal stenosis. No foraminal stenosi s. Mild facet hypertrophy is present. T12-L1: Broad-based disc bulges anterior thecal sac contact. No AP spinal canal stenosis or cord cont act is evident. Neural foramen are patent. IMPRESSION: 1. Very severe left foraminal stenosis L5-S1 with left exiting nerve root impingement identified in s agittal plane. This is progressive from the comparison. 2. L5-S1 Grade 1 spondylolisthesis with disc uncovering and moderate anterior thecal sac compression without AP spinal canal stenosis. 3. Broad-based disc bulging L4-5 has moderate anterior thecal sac compression without stenosis. Left foraminal stenosis is present. 4. Broad-based disc bulge L3-4 with mild anterior thecal sac compression and moderate right foraminal stenosis is present at this level. 5. Broad-based disc bulge T12-L1 with mild anterior thecal sac contact.
== END | disposition home or self-care (01) ==
LOC: RADMRIMAIN 10:25
PROVIDERS: ATTEND Orthopaedic Surgery Orthopaedic Surgery of the Spine
DX: M47.816 Spondylosis without myelopathy or radiculopathy, lumbar region (principal); M43.16 Spondylolisthesis, lumbar region; M48.061 Spinal stenosis, lumbar region without neurogenic claudication; M99.73 Connective tissue and disc stenosis of intervertebral foramina of lumbar region
CPT/HCPCS: 72148

== ENCOUNTER → 2022-06-17 | Outpatient (CLI) | payer MEDICARE ==
--- NOTE | 2022-06-17 07:50 | XR ---
EXAMINATION TYPE: XR chest 2V DATE OF EXAM: 06/17/2022 COMPARISON: NONE HISTORY: Shortness of breath TECHNIQUE: Frontal and lateral views of the chest are obtained. FINDINGS: Scattered senescent parenchymal changes noted. Hyperinflation compatible with COPD. No evidence for infiltrate. No evidence for atelectasis. Heart size is stable. Mediastinal structures are stable and grossly unremarkable. No evidence for hilar prominence. Degenerative changes dorsal spine. IMPRESSION: 1. No evidence for acute pulmonary disease.
[2022-06-17 08:32] LABS: Partial Thromboplastin Time 22.7 sec (22.0-30.0); Prothrombin Time 10.5 sec (9.0-12.0)
[2022-06-17 10:33] LABS: Basophils # (A) 0.04 X 10*3/uL (0.00-0.10); Basophils % (A) 0.5 %; Eosinophils # (A) 0.14 X 10*3/uL (0.04-0.35); Eosinophils % (A) 1.8 %; HCT 43.6 % (37.2-46.3); HGB 14.9 g/dL (12.0-15.0); Immature Grans, Automated 0.4 %; Lymphocytes # (A) 2.21 X 10*3/uL (0.90-5.00); Lymphocytes % (A) 28.8 %; MCH 32.3 pg (27.0-32.0); MCHC 34.2 g/dL (32.0-37.0); MCV 94.4 fL (80.0-97.0); Mean Platelet Volume 9.6 fL (9.5-12.2); Monocytes # (A) 0.74 X 10*3/uL (0.20-1.00); Monocytes % (A) 9.6 %; NRBC Per 100 WBC 0 /100 WBCS (0.0-0.0); Neutrophils # (A) 4.52 X 10*3/uL (1.80-7.70); Neutrophils % (A) 58.9 %; Platelet Count 242 X 10*3/uL (140-440); RBC 4.62 X 10*6/uL (4.10-5.20); RDW 12.3 % (11.5-14.5); WBC 7.68 X 10*3/uL (4.50-10.00)
[2022-06-17 10:48] LABS: African American GFR (CKD) 86.6 (60.0-200.0); Albumin 4.3 g/dL (3.8-4.9); Albumin/Globulin Ratio 1.87 (1.60-3.17); Anion Gap 8.4 mmol/L (10.00-18.00); BUN/Creat Ratio 13.5 Ratio (12.00-20.00); Blood Urea Nitrogen 10.8 mg/dL (9.0-27.0); Calcium 9.7 mg/dL (8.7-10.3); Carbon Dioxide 27.6 mmol/L (20.0-27.5); Globulin 2.3 g/dL (1.6-3.3); Non-African American GFR(CKD) 74.7 (60.0-200.0); Potassium 4.5 mmol/L (3.5-5.5); Total Bilirubin 0.4 mg/dL (0.30-1.20); Total Protein 6.6 g/dL (6.2-8.2)
[2022-06-17 16:42] LABS: Appearance,Urine Clear (Clear); Bilirubin,Urine Negative (Negative); Blood,Urine Negative (Negative); Color,Urine Yellow (Yellow); Ketones,Urine Negative (Negative); Nitrite,Urine Negative (Negative); PH, Urine 5.5 (5.0-8.0); Urobilinogen,Urine 0.2 (0.2,1.0)
[2022-06-17 16:48] LABS: Bacteria,Urine None Seen /HPF (None Seen)
== END | disposition home or self-care (01) ==
LOC: LABPAT 07:21
PROVIDERS: ATTEND Orthopaedic Surgery Orthopaedic Surgery of the Spine
DX: Z01.818 Encounter for other preprocedural examination (principal); M43.00 Spondylolysis, site unspecified; R06.02 Shortness of breath
CPT/HCPCS: 71046; 80053; 81001; 85025; 85610; 85730; 87070

== ENCOUNTER 2022-06-29 05:42 | Inpatient (IN) | payer MEDICARE ==
[~2022-06-29 05:42] MED LIST changes: -LACTATED RINGERS 1,000 ML IV SCH; +ceFAZolin 1,000 MG in SODIUM CHLORIDE 0.9% IRRIGATIO 1,000 ML IRRIGATION PRN
[2022-06-29] MEDS ORDERED: MIDAZOLAM 2 MG/2 ML VIAL IV PRN (06:01)
[2022-06-29] MEDS ORDERED: DEXAMETHASONE SOD PHOSPHATE 4 MG/ML 1 ML VIAL IV ONE (06:01)
[2022-06-29] MEDS ORDERED: LIDOCAINE 1% (10MG/ML) FOR IV START INTRADERMA PRN (06:01)
[2022-06-29] MEDS ORDERED: ONDANSETRON 4 MG/2 ML VIAL IVP ONE ×2 (06:01→12:16)
[2022-06-29] MEDS: LACTATED RINGERS 1,000 ML IV SCH (06:23)
[2022-06-29 06:39] LABS: Glucose,Whole Blood 127 mg/dL (70-110)
[2022-06-29] MEDS ORDERED: HYDROmorphone 0.5 MG/0.5 ML SYRINGE IVP PRN ×2 (07:00→11:31)
[2022-06-29] MEDS ORDERED: HEPARIN SODIUM,PORCINE 10,000 UNIT/ML 1 ML VIAL ONE (07:30)
[2022-06-29] MEDS ORDERED: SODIUM CHLORIDE 0.9% IRRIG 1,000 ML BTL IRRIGATION ONE (07:30)
[2022-06-29] MEDS ORDERED: SUCCINYLCHOLINE CHLORIDE 200 MG/10 ML VIAL IV ONE (07:30)
[2022-06-29] MEDS ORDERED: PHENYLEPHRINE-0.9% NACL SYG 1,000 MCG/10 ML SYRINGE ONE (07:30)
[2022-06-29] MEDS ORDERED: fentaNYL (PF) 50 MCG/ML 2 ML AMP ONE (07:30)
[2022-06-29] MEDS ORDERED: MIDAZOLAM 2 MG/2 ML VIAL ONE (07:30)
[2022-06-29] MEDS ORDERED: KETAMINE 10 MG/ML 20 ML VIAL ONE (07:30)
[2022-06-29] MEDS ORDERED: NEOSTIGMINE 1 MG/ML 10 ML VIAL ONE (07:30)
[2022-06-29] MEDS ORDERED: ROCURONIUM 10 MG/ML (5 ML VIAL) IV ONE (07:30)
[2022-06-29] MEDS ORDERED: GLYCOPYRROLATE 0.2 MG/ML 2 ML VIAL ONE (07:30)
[2022-06-29] MEDS ORDERED: PROPOFOL 10 MG/ML 20 ML VIAL IV ONE (07:30)
[2022-06-29] MEDS ORDERED: ePHEDrine 50 MG/ML 1 ML VIAL ONE (07:30)
[2022-06-29] MEDS ORDERED: LIDOCAINE 2% INJ 20 MG/ML (2 ML VIAL) ONE (07:30)
[2022-06-29] MEDS ORDERED: BUPIVACAINE (PF) 0.5% 30 ML VIAL SQ ONE ×2 (07:36→08:10)
[2022-06-29] MEDS ORDERED: THROMBIN (BOVINE) 5,000 UNIT VIAL TOPICAL ONE (07:36)
[2022-06-29] MEDS ORDERED: GELATIN SPONGE,ABSORB (LARGE) 1 EACH SPONGE TOPICAL ONE (07:36)
[2022-06-29] MEDS ORDERED: LIDOCAINE 1%-EPI 1:100,000 20 ML VIAL SQ ONE ×2 (07:36→08:10)
[2022-06-29] MEDS ORDERED: LACTATED RINGERS 1,000 ML IV ONE ×3 (09:00→11:07)
--- NOTE | 2022-06-29 11:26 | XR ---
EXAMINATION TYPE: XR lumbar spine 2 or 3V, FL guidance operating room DATE OF EXAM: 06/29/2022 Comparison: None Clinical History: 72-year-old female LUMBAR FUSION Findings: Imaging during posterior lumbar fusion. FLUOROSCOPY Fluoroscopy time of 33 seconds was used during lumbar fusion. 6 image/s document/s the procedure. Impression: Intraoperative fluoroscopy as above.
[2022-06-29] MEDS ORDERED: ONDANSETRON 4 MG/2 ML VIAL IVP PRN (11:31)
[2022-06-29] MEDS ORDERED: BENZOCAINE/MENTHOL LOZENG 1 EACH LOZENGE MUCOUS MEM PRN (11:31)
[2022-06-29] MEDS ORDERED: SENNOSIDES-DOCUSATE SODIUM 1 EACH TAB PO PRN (11:31)
[2022-06-29] MEDS ORDERED: MAGNESIUM HYDROXIDE 2,400 MG/10 ML CUP PO PRN (11:31)
--- NOTE | 2022-06-29 11:40 | P.OP ---
Date of Procedure: 06/29/22 Preoperative Diagnosis: Spondylolisthesis L5-S1, degenerative disc disease L4 5 L5-S1, spinal stenosis L4 5 L5-S1, low back pain, lower extremity radiculopathy, spinal stenosis with neurogenic claudication Postoperative Diagnosis: Same Anesthesia: GETA Pathology: none sent Condition: stable Disposition: PACU Operative Findings: DESCRIPTION OF PROCEDURE(S): BRIEF OPERATIVE NOTE Preoperative Diagnosis: Spondylolisthesis L5-S1 , spinal stenosis L4 5 L5-S1, lower extremity radiculopathy, lower extremity weakness, neurogenic claudication, low back pain, degenerative disc disease Postoperative Diagnosis: Same Procedure: Laminectomy and decompression L4 5 L5-S1 Computer CT navigation aided Minimally invasive Posterior lateral decompression and facet fusion L4 5 L5-S1 Minimally invasive Transforaminal lumbar interbody fusion for a 360 fusion L4 5 L5-S1 Discectomy for decompression L4 5 L5-S1 Placement of interbody graft L4 5 L5-S1 Use of computer navigation for fusion Local autogenous bone grafting Aspiration of bone marrow from the vertebral body pedicle at L4 on the right Use of bone graft extenders Surgeon: Dr. Kahn Medical Authorization Specialist: Mick BRENNAN who is present throughout the entire the case per sistence during positioning, dissection, exposure, visualization, and all crucial elements of the case as well as closure. Anesthesia: General anesthesia Estimated blood loss: Approximately 200 mL Complications: None apparent Components implanted: K2M minimally invasive Claxton pedicle screw system withscrews measuring 6.5 mm in diameter to rods one Weehawken interbody cage with 10 mL of osteo amp bio4 bone graft substitute and 30 mL of the BX bone fibers to supplement the local autogenous bone graft and bone marrow aspirate Disposition: To recovery room in good stable condition. OPERATIVE INDICATIONS The patient has had severe issues at their lower extremity in her lower back over the past several years with significant worsening over the past several months. Over the past few months the patient had pain at their back and their lower extremities. The patient is having severe radicular symptoms at their lower extremity with weakness. The patient is having significant pain in their back. They are unable to obtain any comfort. We did aggressive conservative treatment with medications therapy and interventional pain management however thery were not having any relief. She was found have significant changes at L4 5 and L5-S1 which correlated well with her low back and lower extremity symptoms The patient also showed evidence of a listhesis with some dynamic instability a t L5-S1. The patient has been through conservative treatment. We discussed various treatment options including surgery, and the patient wishes to proceed with surgery We discussed the risk, patient's alternatives and benefits of surgery including but not limited to, risk of bleeding risk of infection, risk of need for further surgery, risk of decreased, loss of motion, muscle function, malunion nonunion, hardware failure, nerve damage, paralysis, heart attack, blindness and . They understood issues with the current pandemic and the possibility of exposure. OPERATIVE SUMMARY After discussing all the risks, patient alternatives and benefits at length, the patient elected to proceed with surgical intervention, signed informed consent, and presented for their procedure. The patient was seen and examined in the preoperative holding area and the surgical site was marked. The patient was given antibiotics and brought to the operating room. The patient was sedated and intubated by anesthesia in standard fashion. The patient was positioned on to the operating room table in a prone position on the appropriate frame which was well-padded and well molded. We were careful to pad any bony prominences and pressure points. We were careful to maintain the patient's cervical spine and good neutral alignment and position throughout. The patient was prepped and draped in a normal standard fashion. An appropriate timeout and keystone protocol performed. We were able to proceed with the surgery. The local wound area was infiltrated with local anesthetic. Over the right iliac crest I was able to make small stab incisions and establish a guidepin screw fixation to the iliac crest 2. I was able place the computer referencing device over the guidepins to establish an appropriate reference point for the Ziem CT navigation. We then were able to place patient in an appropriate drape and do a navigation spin for visualization and 3-D reconstruction of the lumbar spine. I was able utilize C-arm guidance and navigation to establish appropriate position over the pedicles bilaterally at the appropriate levels at L4-L5 and S1 . With the appropriate levels confirmed was able to make small incisions over the appropriate pedicle sites bilaterally. Utilizing the computer navigation device I was able to establish bony landmarks at the right iliac crest for a bony reference point for the navigation device. I was able to establish a Jamshidi needle over the lateral aspect of the pedicle and advanced the trocar into the pedicle being careful not to breech superiorly inferiorly medially or laterally using computer navigation device. Position was confirmed regularly with AP and lateral images on C-arm and with the computer navigation device at the appropriate levels bilaterally. I was able to establish the trocar into the pedicle appropriately into the posterior aspect of the vertebral body bilaterally at the appropriate levels. This was done at each of the pedicle positions and each of the vertebrae. At the superior vertebrae of L4 on the right I was able to take approximately 25 mL of bone aspiration for use later in the case to supplement the allograft and autograft bone. I was able place the guidewire into the trocar and into the vertebral body appropriately under C-arm guidance. Dissection was taken down over the wire to the appropriate starting position for the screw placed. The appropriate length screw was chosen, threaded over the guidewire and screwed appropriately into the pedicle and vertebral body under C-arm guidance in excellent alignment and position with good bony purchase. This is done at each of the screw sites at the appropriate levels.. With the screws intact I extended the incision to connect the screw hole sites on the left side access L5-S1 and on the right side at the level of L4 5. I dissected down to establish access over the pars and lamina to the base of the spinous process. I was able to expose the facet joint. The capsule the facet was taken down and showed some facet arthrosis at the joint. I was able to use a combination of curettes and Kerrison rongeurs and a high-speed drill to take down the facet joint and do a facetectomy. I was able get excellent foraminal decompression and central decompression with undermining across midline to perform a laminectomy centrally and contralaterally. As able get good central decompression. The ligamentum flavum was taken down to further decompress centrally and at bilateral neural foramen. I was able to expose the disc space and visualize the traversing nerve root. Note was made of some disc protrusion and disc herniation that was abutting the traversing nerve root at the level causing further compression of the nerve root. I was able to establish a annulotomy at the appropriate level protecting soft tissue and neural structures. Note was made of some severe disc desiccation at the disc. I performed a complete discectomy with accommodation of curettes and rasps and scrapers. I was able get good endplate preparation at the disc space. I sized for the appropriate size interbody spacer protecting the soft tissue and neural structures. This was done first at L5-S1 and L4 5 The wound was copiously irrigated and suctioned dry. There is no evidence of any dural tear or leak. I was able to pack the disc space with local autogenous bone graft as well as a small amount of bone graft which was also placed into the interbody cage itself. Protecting the soft tissue structures and neural structures I was able place the interbody cage in good alignment and good position with good fit and fill at the interbody space. Position was confirmed with C-arm guidance. Good hemostasis maintained. There is no evidence of any dural tear or leak. The wound was irrigated and suctioned dry. With the hardware intact, intraoperative C-arm imaging was again taken which showed good alignment and position of the hardware at the appropriate levels at L4-L5 and S1. We were then able to measure, contour and place the rods and appropriate hardware bilaterally. I was able to place capcrews, tighten them down, and torque them with the torque screwdriver appropriately. With this intact I was able to place the local autogenous bone graft with additional bone graft enhancer as necessary into the posterior lateral gutters over the deco rticated transverse processes and facet joints on the contralateral side. The remainder of the bone graft was placed over the facet joint on the contralateral side after taking down the facet joint capsule. With the bone graft intact, a stable construct, and good decompression at the appropriate levels, we were able to proceed with closure. Good hemostasis was maintained. There is no evidence of dural tear or leak. The fascia was closed for a watertight closure. he subcuticular tissue was closed with absorbable suture. The wound was cleaned and dried and dressed with the appropriate dressing. The drapes were broken down. The patient was gently rolled back onto their hospital bed being careful to maintain their cervical spine and good neutral alignment and position. They were woken up by anesthesia, extubated, and brought to the recovery room in good stable condition. The patient will be admitted to the hospital for appropriate postoperative care, medical management and monitoring. We will continue to follow them closely about the postoperative course.
[2022-06-29 12:10] LABS: Glucose,Whole Blood 148 mg/dL (70-110)
[2022-06-29] MEDS: HYDROmorphone 1 MG/ML 1 ML SYRINGE IVP PRN ×2 (13:26→17:25)
[2022-06-29] MEDS: SODIUM CHLORIDE 0.9% 1,000 ML IV SCH (13:30)
[2022-06-29] MEDS: HYDROcodone/APAP 5-325MG 1 EACH TAB PO PRN ×2 (15:07→22:50)
[2022-06-29] MEDS: CYCLOBENZAPRINE 10 MG TAB PO PRN (17:26)
[2022-06-30] MEDS: HYDROmorphone 1 MG/ML 1 ML SYRINGE IVP PRN ×2 (01:27→08:05)
[2022-06-30] MEDS: SODIUM CHLORIDE 0.9% 1,000 ML IV SCH ×3 (05:21→19:57)
[2022-06-30] MEDS: LACTATED RINGERS 1,000 ML IV SCH (05:24)
[2022-06-30] MEDS: MULTIVITAMINS, THERA 1 EACH TAB PO SCH (08:04)
[2022-06-30] MEDS: lisinopriL 20 MG TAB PO SCH (08:04)
[2022-06-30] MEDS: SENNOSIDES-DOCUSATE SODIUM 1 EACH TAB PO SCH (08:04)
[2022-06-30] MEDS: PANTOPRAZOLE 40 MG TABLET PO SCH (08:05)
[2022-06-30] MEDS: amLODIPine 10 MG TAB PO SCH (08:05)
[2022-06-30] MEDS ORDERED: NON FORMULARY DRUG (Fish Oil/Dha/Epa [Fish Oil 1,200 Mg Fish Oil] 1 EACH Capsule) PO SCH (09:00)
[2022-06-30 09:29] LABS: Basophils # (A) 0.02 X 10*3/uL (0.00-0.10); Basophils % (A) 0.2 %; Eosinophils # (A) 0 X 10*3/uL (0.04-0.35); Eosinophils % (A) 0 %; HCT 42.3 % (37.2-46.3); HGB 13.8 g/dL (12.0-15.0); Immature Grans, Automated 0.7 %; Lymphocytes # (A) 1.42 X 10*3/uL (0.90-5.00); Lymphocytes % (A) 11.1 %; MCH 32.5 pg (27.0-32.0); MCHC 32.6 g/dL (32.0-37.0); MCV 99.8 fL (80.0-97.0); Mean Platelet Volume 9.3 fL (9.5-12.2); Monocytes # (A) 1.15 X 10*3/uL (0.20-1.00); NRBC Per 100 WBC 0 /100 WBCS (0.0-0.0); Neutrophils # (A) 10.15 X 10*3/uL (1.80-7.70); Platelet Count 198 X 10*3/uL (140-440); RBC 4.24 X 10*6/uL (4.10-5.20); RDW 12.6 % (11.5-14.5); WBC 12.83 X 10*3/uL (4.50-10.00)
[2022-06-30 10:08] LABS: African American GFR (CKD) 103.4 (60.0-200.0); Anion Gap 9.7 mmol/L (10.00-18.00); BUN/Creat Ratio 10.28 Ratio (12.00-20.00); Blood Urea Nitrogen 6.9 mg/dL (9.0-27.0); Carbon Dioxide 27.4 mmol/L (20.0-27.5); Non-African American GFR(CKD) 89.2 (60.0-200.0); Potassium 4.3 mmol/L (3.5-5.5)
--- NOTE | 2022-06-30 11:32 | P.PN ---
Progress Note - Text Progress Note Date: 06/30/22 Postoperative day #1 Patient is seen and examined today at bedside. The patient has some pain around the surgical site as expected. Pain is being controlled with medication. The dressing appears to be dry. She is moving his legs well. She has not had any nausea or vomiting. Physical Exam Afebrile with stable vital signs Abdomen is soft nontender. Chest has good excursion deep and space expiration The incision site is clean dry and intact. No erythema there is no purulence. Extremities have not had neurologic change from prior to surgery. She has sustained dorsal to plantar flexion and EHL intact Calves and thighs were soft nontender without evidence of DVT. Assessment/Plan Postoperative day #1 status post minimally invasive decompression fusion L4 5 L5-S1 for spondylolisthesis with spinal stenosis and lower extremity radiculopathy Patient is progressing as expected from the surgery. She feels her legs are doing well but her back is giving her significant pain. She has been up and she is currently in a chair and she feels like she is going to be able to move around better with little more time. We will continue to increase the patient's mobilization with therapy. We will continue pain control with oral or IV medications. Hopefully she'll be okay for discharge likely in 2 days but possibly tomorrow. We'll continue to follow patient closely.
[2022-06-30] MEDS: HYDROcodone/APAP 5-325MG 1 EACH TAB PO PRN ×3 (11:47→19:56)
[2022-07-01] MEDS ORDERED: HYDROcodone/APAP 5-325MG 1 EACH TAB ONE (03:00)
[2022-07-01] MEDS ORDERED: CYCLOBENZAPRINE 10 MG TAB ONE (03:00)
[2022-07-01] MEDS: LACTATED RINGERS 1,000 ML IV SCH (08:47)
[2022-07-01] MEDS: SENNOSIDES-DOCUSATE SODIUM 1 EACH TAB PO SCH (09:02)
[2022-07-01] MEDS: amLODIPine 10 MG TAB PO SCH (09:02)
[2022-07-01] MEDS: PANTOPRAZOLE 40 MG TABLET PO SCH (09:02)
[2022-07-01] MEDS: SODIUM CHLORIDE 0.9% 1,000 ML IV SCH (09:02)
[2022-07-01] MEDS: lisinopriL 20 MG TAB PO SCH (09:02)
[2022-07-01] MEDS: CYCLOBENZAPRINE 10 MG TAB PO PRN (09:02)
[2022-07-01] MEDS: MULTIVITAMINS, THERA 1 EACH TAB PO SCH (09:02)
--- NOTE | 2022-07-01 09:02 | P.PN ---
Progress Note - Text Progress Note Date: 07/01/22 Orthopedic Spine History of present illness: Patient is a pleasant 72-year-old female who is seen and examined at the bedside following posterior lateral decompression and fusion performed Monday. Patient states they are doing okay post operatively. Her lower extremity leg pain is adequately controlled. She does have significant spasms at her lumbar spine with mobilization. Her pain can be exacerbated with trying to sit or stand. Currently does not complain of nausea, vomiting, fever, or chills. Patient states she has had difficulty with pain control. Patient is eating and voiding freely without difficulty. She has been utilizing a walker to aid in ambulation. She has a walker at home. She is planned for discharge home once her symptoms improved. Consultation has been placed with medicine for postoperative management. Physical Exam Lumbar Fusion: Status post surgical day number 2 Patient is awake, alert, and oriented 3 Vital signs stable Good chest excursion with deep inspiration and expiration Abdomen soft nontender Dorsiflexion, plantarflexion, and extensor hallucis longus positive sustained bilaterally No signs or symptoms of DVT; no calf pain; pneumatic cuffs intact bilateral lower extremities Optifoam dressings are moving during physical examination; examination of the surgical incision sites show no evidence of erythema, purulence, or signs of infection No active drainage from the surgical sites at the lumbar spine or over the right iliac crest Dressings are reapplied over the surgical sites Neurovascularly intact bilaterally lower extremities Assessment: Status post L4-5 and L5-S1 minimally invasive posterior lateral decompression and fusion with transforaminal lumbar interbody fusion Significant lumbar spasm Low back pain L4-5 and L5-S1 spinal stenosis Lower extremity radiculopathy Neurogenic claudication Lumbar degenerative disc disease L5-S1 spondylolisthesis Hypertension Elevated cholesterol Type 2 diabetes History of kidney cancer Unsteady gait Plan: 1. Ambulate as tolerated; work with Physical Therapy to increase mobilization; she may continue to utilize a walker to aid in ambulation 2. Continue pain control with IV and oral medications; will plan to begin weaning the patient off of IV narcotic medication in anticipation for discharge home in the next 1-2 days; patient has had difficulty with lumbar spasms and pain control. She has been taking cyclobenzaprine 10 mg and hydrocodone 5 mg/325 mg. We will currently planned to increase the hydrocodone to 7.5 mg/325 mg. MAPS has been reviewed today, 07/01/2022, with an Overall Overdose Risk Score of 000. An "Opiod Start Talking" Form has been signed and placed in the patient's chart. A prescription has been written for hydrocodone 7.5 mg/325 mg take 1 every 6 hours as needed for pain, dispensed #28. Patient is also given a prescription for cyclobenzaprine 10 mg take 1 tab 3 times a day as needed for muscle spasm dispensed #60. His medications are sent to the [facility] pharmacy located within [facility] per the patient's request. 3. Dressings have been changed; Tegaderm is intact; patient may shower with dressings intact 4. Medical management can continue to manage patient for patient's other medical diagnoses including hypertension, elevated cholesterol, and type 2 diabetes 5. We will continue to follow the patient closely; patient continues to have difficulty with mobilization and ambulation postoperatively. She has been working with physical therapy and is progressing. She has been utilizing a walker. She continues to require IV and oral medications for pain control as she has been experiencing significant spasm and increased pain due to spasm. I do not feel the patient is ready for discharge home. Patient will continue to remain in the hospital until her symptoms improve and her pain is better controlled. We will plan to have the patient be admitted to in patient status during her admission. Depending on her progress we patient may plan to be discharged home the next 1-2 days. 6. Patient can follow-up with Mick Pineda PA-C or Dr. Noel Kahn at [facility] in 2-3 weeks following discharge
[2022-07-01] MEDS: HYDROcodone/APAP 7.5-325MG 1 EACH TAB PO PRN ×2 (09:11→17:56)
[2022-07-01] MEDS: HYDROmorphone 1 MG/ML 1 ML SYRINGE IVP PRN (20:09)
[2022-07-01] MEDS ORDERED: DEXTROSE 50% SYRINGE 50 ML IVP PRN (22:03)
--- NOTE | 2022-07-01 22:37 | P.CONS ---
History of Present Illness - Reason for Consult Consult date: 07/01/22 Medical management - Chief Complaint Status post laminectomy and decompression - History of Present Illness Patient is a 72-year-old female with a known history of hypertension, hyperlipidemia, GERD, history of renal malignancy and diet-controlled diabetes type 2 and currently everyday smoker was admitted to the hospital for elective laminectomy and decompression L4-L5. Patient does have L5-S1, L4-L5 disc degenerative disease and low back pain and lower lower extremity radiculopathy symptoms and spinal stenosis. Patient is currently complaints of back spasms and was started on Flexeril. No complaints of chest pain or shortness of breath. Mild nausea. No episodes of vomiting. No complaints of abdominal pain. No headache or dizziness or lightheadedness. Patient was having elevated t emperature with T-max 100.3 today early in the morning. Afebrile currently. Patient was also tachypneic. Denies any abdominal pain. Denied any dysuria or hematuria. Patient did not have any bowel meant today. Review of Systems Constitutional: Patient denies any fever or chills . no Generalized weakness. Abdomen: Patient denied any nausea or vomiting or abd. pain Cardiovascular: Patient denies any chest pain or short of breath no palpitations. Respiratory: patient denied any cough . no sputum production. No shortness of breath Neurologic: Patient denied any numbness or tingling headache. Musculoskeletal: Patient denies any complaints of joint swelling or deformity. Complaints of back spasms. Skin: Negative Psychiatric: Negative Endocrine: No heat or cold intolerance. No recent weight gain. Genitourinary: No dysuria or hematuria. All other 14 point ROS negative except the above Past Medical History Past Medical History: Cancer, Diabetes Mellitus, GERD/Reflux, Hyperlipidemia, Hypertension Additional Past Medical History / Comment(s): kidney cancer, diet control diabetic History of Any Multi-Drug Resistant Organisms: None Reported Past Surgical History: Adenoidectomy, Orthopedic Surgery, Tonsillectomy, Tubal Ligation Additional Past Surgical History / Comment(s): tumor removed from right kidney. eloy heel spurs removed. Past Anesthesia/Blood Transfusion Reactions: No Reported Reaction Past Psychological History: No Psychological Hx Reported Smoking Status: Current every day smoker Past Alcohol Use History: None Reported Additional Past Alcohol Use History / Comment(s): QUIT A COUPLE WEEKS AGO Smokes 1 PPD, has smoked > 50 yrs Past Drug Use History: None Reported - Past Family History Mother Family Medical History: No Reported History Medications and Allergies Home Medications Medication Instructions Recorded Confirmed Type Benazepril HCl 40 mg PO QAM 04/15/18 06/29/22 History Fish Oil/Dha/Epa [Fish Oil 1,200 1 cap PO DAILY 04/15/18 06/29/22 History mg Fish Oil] Omeprazole 20 mg PO QAM 04/15/18 06/29/22 History amLODIPine [Norvasc] 10 mg PO QAM 04/15/18 06/29/22 History Cinnamon Bark [Cinnamon] 2,000 mg PO BID 05/04/21 06/29/22 History Ibuprofen 600 mg PO BID 05/04/21 06/29/22 History Multivitamins, Thera [Multivitamin 1 tab PO DAILY 05/04/21 06/29/22 History (formulary)] Cyclobenzaprine [Flexeril] 10 mg PO TID PRN #60 tab 07/01/22 Rx HYDROcodone/APAP 7.5-325MG [Seymour 1 each PO Q6HR PRN #28 tab 07/01/22 Rx 7.5-325] Allergies Allergy/AdvReac Type Severity Reaction Status Date / Time metformin Allergy Diarrhea Verified 06/29/22 06:19 simvastatin AdvReac Diarrhea Verified 06/29/22 06:19 Physical Exam Vitals: Vital Signs Temp Pulse Pulse Resp BP BP Pulse Ox 07/01/22 11:18 98.8 F 108 H 18 127/99 90 L 07/01/22 08:55 110 H 152/89 07/01/22 05:00 97.8 F 109 H 16 146/79 97 06/30/22 21:22 98.6 F 06/30/22 19:42 100.2 F H 112 H 16 144/83 92 L Intake and Output 06/30/22 07/01/22 07/01/22 22:59 06:59 14:59 Intake Total 590 Output Total 1 Balance 590 -1 Intake: Oral 590 Output: Urine 1 Other: Voiding Method Toilet Toilet Bedside Commode Bedside Commode # Voids 1 3 PHYSICAL EXAMINATION: Patient is lying in the bed comfortably, no acute distress, awake alert and oriented.. HEENT: Normocephalic. Neck is supple. Pupils reactive. Nostrils clear. Oral cavity is moist. Neck reveals no JVD, carotid bruits, or thyromegaly. CHEST EXAMINATION: Trachea is central. Symmetrical expansion. Lung patino clear to auscultation and percussion. Bibasilar diminished sounds. CARDIAC: Normal S1, S2 with no gallops. No murmurs ABDOMEN: Soft. Bowel sounds present. Nontender. No organomegaly. No abdominal bruits. Extremities: reveal no edema. No clubbing or cyanosis Neurologically awake, alert, oriented x3 with well-coordinated movements. No focal deficits noted Skin: No rash or skin lesions. Psychiatric: Coperative. Nonsuicidal, Musculoskeletal: No joint swelling or deformity. Normal range of motion. Results CBC & Chem 7: 06/30/22 05:42 06/30/22 05:42 Assessment and Plan Assessment: S/p laminectomy decompression L4-L5. Postoperative day 1 Fever with T-max of 100.3. Rule out infection. Hypertension uncontrolled Diet-controlled diabetes type 2 GERD History of renal cell cancer status post tumor removed from right kidney Currently everyday smoker DVT prophylaxis Plan: Patient will be continued on IV hydration and monitor currently. If the patient becomes febrile again will get chest x-ray and UA and blood cultures. Follow-up repeat CBC and BMP. Today's incentive spirometry and bowel regimen. Continue pain medications and DVT prophylaxis. Will follow closely and further recommendations based on clinical course. Smoking cessation has been counseled extensively. Thank you for your consult. Time with Patient: Greater than 30
[2022-07-02] MEDS: CYCLOBENZAPRINE 10 MG TAB PO PRN ×2 (05:11→08:29)
[2022-07-02] MEDS: LACTATED RINGERS 1,000 ML IV SCH (05:12)
[2022-07-02] MEDS: SODIUM CHLORIDE 0.9% 1,000 ML IV SCH ×2 (05:12→08:29)
[2022-07-02 06:59] LABS: Glucose,Whole Blood 126 mg/dL (70-110)
[2022-07-02] MEDS: INSULIN ASPART (NovoLOG) 100 UNIT/ML VIAL SQ SCH ×4 (07:03→21:18)
[2022-07-02] MEDS: PANTOPRAZOLE 40 MG TABLET PO SCH (08:28)
[2022-07-02] MEDS: amLODIPine 10 MG TAB PO SCH (08:28)
[2022-07-02] MEDS: SENNOSIDES-DOCUSATE SODIUM 1 EACH TAB PO SCH (08:29)
[2022-07-02] MEDS: MULTIVITAMINS, THERA 1 EACH TAB PO SCH (08:29)
[2022-07-02] MEDS: HYDROcodone/APAP 7.5-325MG 1 EACH TAB PO PRN ×3 (08:29→21:18)
[2022-07-02] MEDS: lisinopriL 20 MG TAB PO SCH (08:29)
[2022-07-02 08:58] LABS: Basophils # (A) 0.02 X 10*3/uL (0.00-0.10); Basophils % (A) 0.2 %; Eosinophils # (A) 0.06 X 10*3/uL (0.04-0.35); Eosinophils % (A) 0.6 %; HCT 37.2 % (37.2-46.3); HGB 12.7 g/dL (12.0-15.0); Immature Grans, Automated 0.6 %; Lymphocytes # (A) 1.46 X 10*3/uL (0.90-5.00); Lymphocytes % (A) 15.8 %; MCH 32.5 pg (27.0-32.0); MCHC 34.1 g/dL (32.0-37.0); MCV 95.1 fL (80.0-97.0); Mean Platelet Volume 9.7 fL (9.5-12.2); Monocytes # (A) 0.95 X 10*3/uL (0.20-1.00); Monocytes % (A) 10.3 %; NRBC Per 100 WBC 0 /100 WBCS (0.0-0.0); Neutrophils % (A) 72.5 %; Platelet Count 167 X 10*3/uL (140-440); RBC 3.91 X 10*6/uL (4.10-5.20); RDW 12.4 % (11.5-14.5); WBC 9.25 X 10*3/uL (4.50-10.00)
[2022-07-02 09:04] LABS: African American GFR (CKD) 113.3 (60.0-200.0); Anion Gap 11.7 mmol/L (10.00-18.00); BUN/Creat Ratio 17.98 Ratio (12.00-20.00); Blood Urea Nitrogen 9.1 mg/dL (9.0-27.0); Calcium 8.8 mg/dL (8.7-10.3); Carbon Dioxide 24.7 mmol/L (20.0-27.5); Non-African American GFR(CKD) 97.7 (60.0-200.0); Potassium 3.7 mmol/L (3.5-5.5)
--- NOTE | 2022-07-02 09:07 | P.PN ---
Progress Note - Text Progress Note Date: 07/02/22 Postoperative day #3 Patient is seen and examined today at bedside. The patient has some pain around the surgical site as expected. Pain is being controlled with medication. She is having some spasms of the right side of her lower back and this extends down her right lower extremity. She still has good motion at her right leg, but again searched troubles when she tries to ambulate. Physical Exam Afebrile with stable vital signs Abdomen is soft nontender. Chest has good excursion deep and space expiration The incision site is clean dry and intact. No erythema there is no purulence. Extremities have not had neurologic change from prior to surgery. She has sustained dorsal flexion plantarflexion and EHL intact. Calves and thighs were soft nontender without evidence of DVT. Assessment/Plan Postoperative day #3 status post Kindra base of decompression fusion L4 5 L5-S1 for her spondylolisthesis with spinal stenosis and lower extremity radiculopathy Patient is progressing as expected from the surgery. She feels she was making some progress but is being held up with some spasm at her low back and feels like her right leg is giving way and she is standing. Her neurologic status appears to still be intact without decline. I think this may be primarily due to some spasms that her back and she could do well with some muscle relaxer as well. We will continue to increase the patient's mobilization with therapy. I think she'll have to stay overnight against night before she is more stable to mobilize. We will continue pain control with oral or IV medications. We'll continue to follow patient closely.
[2022-07-02 11:46] LABS: Glucose,Whole Blood 125 mg/dL (70-110)
[2022-07-02 17:09] LABS: Glucose,Whole Blood 184 mg/dL (70-110)
[2022-07-02 20:41] LABS: Glucose,Whole Blood 172 mg/dL (70-110)
[2022-07-03] MEDS: HYDROcodone/APAP 7.5-325MG 1 EACH TAB PO PRN ×2 (01:29→05:58)
[2022-07-03] MEDS: LACTATED RINGERS 1,000 ML IV SCH (04:57)
[2022-07-03 06:59] LABS: Glucose,Whole Blood 128 mg/dL (70-110)
[2022-07-03] MEDS: INSULIN ASPART (NovoLOG) 100 UNIT/ML VIAL SQ SCH ×2 (07:06→12:16)
[2022-07-03] MEDS: lisinopriL 20 MG TAB PO SCH (09:18)
[2022-07-03] MEDS: amLODIPine 10 MG TAB PO SCH (09:18)
[2022-07-03] MEDS: MULTIVITAMINS, THERA 1 EACH TAB PO SCH (09:18)
[2022-07-03] MEDS: SENNOSIDES-DOCUSATE SODIUM 1 EACH TAB PO SCH (09:18)
[2022-07-03] MEDS: CYCLOBENZAPRINE 10 MG TAB PO PRN (09:18)
[2022-07-03] MEDS: PANTOPRAZOLE 40 MG TABLET PO SCH (09:18)
[2022-07-03] MEDS: SODIUM CHLORIDE 0.9% 1,000 ML IV SCH (11:09)
[2022-07-03 11:43] VITALS: BP 164/81; PULSE 97; RESP 18; TEMP 98.6
[2022-07-03 12:14] LABS: Glucose,Whole Blood 132 mg/dL (70-110)
--- NOTE | 2022-07-03 12:34 | P.DS ---
Providers Date of admission: 07/01/22 11:31 Expected date of discharge: 07/03/22 Attending physician: Chester Kahn Consults: 07/01/22 08:56 Consult Physician Routine Consulting Provider: Sonali Juan Consult Reason/Comments: Post-operative medical management Do you want consulting provider notified?: Yes Primary care physician: Vicenta Leavitt Charbal - Discharge Diagnosis(es) (1) Status post lumbar spinal fusion Current Visit: Yes Status: Acute (2) Low back pain Current Visit: Yes Status: Acute (3) Spinal stenosis Current Visit: Yes Status: Acute Hospital Course: The patient has had severe issues at their lower extremity in her lower back over the past several years with significant worsening over the past several months. Over the past few months the patient had pain at their back and their lower extremities. The patient is having severe radicular symptoms at their lower extremity with weakness. The patient is having significant pain in their back. They are unable to obtain any comfort. We did aggressive conservative treatment with medications therapy and interventional pain management however thery were not having any relief. She was found have significant changes at L4 5 and L5-S1 which correlated well with her low back and lower extremity symptoms The patient also showed evidence of a listhesis with some dynamic instability at L5-S1. The patient has been through conservative treatment. We discussed various treatment options including surgery, and the patient wishes to proceed with surgery We discussed the risk, patient's alternatives and benefits of surgery including but not limited to, risk of bleeding risk of infection, risk of need for further surgery, risk of decreased, loss of motion, muscle function, malunion nonunion, hardware failure, nerve damage, paralysis, heart attack, blindness and . They understood issues with the current pandemic and the possibility of exposure. The patient is taken to surgery on 06/29/2022 for lumbar decompression and fusion L4 5 and L5-S1. The patient had issues with pain management postoperatively. She was able to participate with physical therapy but was moving fairly slow. She had significant improvement between postoperative days 3 and 4. On postoperative day #4 she is doing well and moving fairly well on her own. Dressings are clean, dry and intact. She has no neurologic deficits on exam. She would like to be discharged to home today. She is given a prescription for a shower chair and a commode chair for home which she will obtain on her own. Plan - Discharge Summary Discharge Rx Participant: Yes New Discharge Prescriptions: New HYDROcodone/APAP 7.5-325MG [Corona 7.5-325] 1 - 2 tab PO Q6HR PRN #32 tab PRN Reason: Pain Cyclobenzaprine [Flexeril] 10 mg PO HS PRN #60 tab PRN Reason: Spasms No Action amLODIPine [Norvasc] 10 mg PO QAM Benazepril HCl 40 mg PO QAM Omeprazole 20 mg PO QAM Fish Oil/Dha/Epa [Fish Oil 1,200 mg Fish Oil] 1 cap PO DAILY Ibuprofen 600 mg PO BID Cinnamon Bark [Cinnamon] 2,000 mg PO BID Multivitamins, Thera [Multivitamin (formulary)] 1 tab PO DAILY Discharge Medication List Benazepril HCl 40 mg PO QAM 04/15/18 [History] Fish Oil/Dha/Epa [Fish Oil 1,200 mg Fish Oil] 1 cap PO DAILY 04/15/18 [History] Omeprazole 20 mg PO QAM 04/15/18 [History] amLODIPine [Norvasc] 10 mg PO QAM 04/15/18 [History] Cinnamon Bark [Cinnamon] 2,000 mg PO BID 05/04/21 [History] Ibuprofen 600 mg PO BID 05/04/21 [History] Multivitamins, Thera [Multivitamin (formulary)] 1 tab PO DAILY 05/04/21 [History] Cyclobenzaprine [Flexeril] 10 mg PO HS PRN #60 tab 07/03/22 [Rx] HYDROcodone/APAP 7.5-325MG [Corona 7.5-325] 1 - 2 tab PO Q6HR PRN #32 tab 07/03/22 [Rx] Follow up Appointment(s)/Referral(s): Mick Pineda, PAC [PHYSICIAN DISTRICT GAUGER] - 2 Weeks (Patient may follow-up with iMck Pineda PA-C or Dr. Noel Kahn at [facility] in 2-3 weeks following discharge. ) Activity/Diet/Wound Care/Special Instructions: 1. Patient may shower with Tegaderm dressing intact. 2. Patient may remove Tegaderm dressing in 3 days and shower without a dressing at that time. 3. Patient should refrain from driving until at least after their first follow- up appointment in the office. 4. Patient should avoid excessive bending, twisting, lifting; avoid overhead lifting; no lifting greater than 10 pounds 5. She may utilize a walker to aid in ambulation as needed 6. Take medications as prescribed 7. Patient should avoid anti-inflammatory medications over the next 6 weeks postoperatively 8. Do not soak in tub Discharge Disposition: HOME SELF-CARE
== END 2022-07-03 14:40 | disposition home or self-care (01) | DRG 455 ==
LOC: OR 05:42 → 5NMEDONC 11:34 → OR 07-01 11:31 → 5NMEDONC 07-01 11:31
PROVIDERS: ADMIT Orthopaedic Surgery Orthopaedic Surgery of the Spine; ATTEND Orthopaedic Surgery Orthopaedic Surgery of the Spine
PROC: 0SG0071 Fusion of Lumbar Vertebral Joint with Autologous Tissue Substitute, Posterior Approach, Posterior Column, Open Approach (ICD-10-PCS; principal; 2022-07-01)
PROC: 07DS3ZZ Extraction of Vertebral Bone Marrow, Percutaneous Approach (ICD-10-PCS; principal; 2022-07-01)
PROC: 0SG3071 Fusion of Lumbosacral Joint with Autologous Tissue Substitute, Posterior Approach, Posterior Column, Open Approach (ICD-10-PCS; principal; 2022-07-01)
PROC: 0SG00A0 Fusion of Lumbar Vertebral Joint with Interbody Fusion Device, Anterior Approach, Anterior Column, Open Approach (ICD-10-PCS; principal; 2022-07-01)
PROC: 0SG30A0 Fusion of Lumbosacral Joint with Interbody Fusion Device, Anterior Approach, Anterior Column, Open Approach (ICD-10-PCS; principal; 2022-07-01)
PROC: 0SG30J1 Fusion of Lumbosacral Joint with Synthetic Substitute, Posterior Approach, Posterior Column, Open Approach (ICD-10-PCS; principal; 2022-07-01)
PROC: 0SG00J1 Fusion of Lumbar Vertebral Joint with Synthetic Substitute, Posterior Approach, Posterior Column, Open Approach (ICD-10-PCS; principal; 2022-07-01)
PROC: 01NB0ZZ Release Lumbar Nerve, Open Approach (ICD-10-PCS; principal; 2022-07-01)
PROC: 0ST40ZZ Resection of Lumbosacral Disc, Open Approach (ICD-10-PCS; principal; 2022-07-01)
PROC: 01NR0ZZ Release Sacral Nerve, Open Approach (ICD-10-PCS; principal; 2022-07-01)
PROC: 0ST20ZZ Resection of Lumbar Vertebral Disc, Open Approach (ICD-10-PCS; principal; 2022-07-01)
PROC: 8E0WXBZ Computer Assisted Procedure of Trunk Region (ICD-10-PCS; principal; 2022-07-01)
DX: M48.062 Spinal stenosis, lumbar region with neurogenic claudication (principal); M43.16 Spondylolisthesis, lumbar region; M48.07 Spinal stenosis, lumbosacral region; M51.17 Intervertebral disc disorders with radiculopathy, lumbosacral region; M43.17 Spondylolisthesis, lumbosacral region; G89.18 Other acute postprocedural pain; R50.82 Postprocedural fever; M51.16 Intervertebral disc disorders with radiculopathy, lumbar region; E78.00 Pure hypercholesterolemia, unspecified; E11.9 Type 2 diabetes mellitus without complications; F17.210 Nicotine dependence, cigarettes, uncomplicated; I10 Essential (primary) hypertension; K21.9 Gastro-esophageal reflux disease without esophagitis; Z85.528 Personal history of other malignant neoplasm of kidney; Z88.8 Allergy status to other drugs, medicaments and biological substances; Z79.899 Other long term (current) drug therapy
CPT/HCPCS: 72100; 80048; 83036; 85025; 86850; 86891; 86900; 86901; 94760

== ENCOUNTER → 2023-11-29 | Outpatient (CLI) | payer MEDICARE ==
--- NOTE | 2023-11-29 15:11 | BD ---
EXAMINATION TYPE: Axial Bone Density DATE OF EXAM: 11/29/2023 CLINICAL HISTORY: 73 years old Female. ICD-10 CODE: N95.1 MENOPAUSAL AND FEMALE CLIMACTERIC M85.88 O TH DISORDERS Height: 62 Weight: 153 FRAX RISK QUESTIONS: Secondary Osteoporosis: yes 3. Menopause before 45: yes, at 45 yrs old 5. Chronic liver disease: hx of kidney ca, and fatty liver Current Tobacco Use: yes RISK FACTORS HISTORY OF: Surgery to Spine yes June 2022, rods and pins L4 through S1 pt is right dominant MEDICATIONS: first bone density at [facility], bp meds, cholesterol meds, EXAM MEASUREMENTS: Bone mineral densitometry was performed using the [employer] System. spinal surgery, 2021, not scanned. Bone mineral density about the R hip (g/cm2): 0.915 Bone mineral density about the L hip (g/cm2): 0.827 T Score values are as follows: -----R Neck: -1.6 -----L Neck: -1.7 -----R Total: -0.7 -----L Total: -1.4 Z Score values are as follows: -----R Neck: 0.0 -----L Neck: -0.1 -----R Total: 0.7 -----L Total: 0.0 Bone mineral density is her first bone density study at [facility]. Bone mineral density about the L Wrist (g/cm2): 0.547 T Score values are as follows: -----Dist. R+U: -2.6 -----Prox. R+U: -1.6 -----Radius total: -2.1 Z Score values are as follows: -----Dist. R+U: -0.7 -----Prox. R+U: 0.3 -----Radius total: -0.2 Bone mineral density first dexa study at [facility]. FRAX%s: The graph provided illustrates a 11.5% chance for a major osteoporotic fx and a 3.3% chance f or the hips probability for fx in 10 years time. IMPRESSION: Osteopenia (T Score between -2.5 and -1). There is slightly increased risk of fracture and the patient may be considered for treatment. Re-Screen 2-5 years. NOTE: T-SCORE=SD OF THE YOUNG ADULT MEAN.
--- NOTE | 2023-11-29 18:46 | MM ---
Reason for Exam: Screening (asymptomatic). Last mammogram was performed 8 year(s) and 5 month(s) ago. Patient History: Menarche at age 16. First Full-Term at age 21. Postmenopausal. Other cancer, age 64. Patient used Estrogen for 3 years. Patient used Progesterone for 3 years. Risk Values: Grisel 5 year model risk: 1.1%. NCI Lifetime model risk: 3.2%. Prior Study Comparison: 07/15/2011 Screening Mammogram, [facility]. 07/16/2012 Screening Mammogram, [facility]. 07/01/2015 Bilateral Screening Mammogram, [facility]. Tissue Density: There are scattered areas of fibroglandular density. Findings: Analyzed By CAD. Chronic bilateral nodularity. Unchanged subareolar asymmetric density on the right. There is no suspicious group of microcalcifications or new suspicious mass in either breast. Overall Assessment: Benign, BI-RAD 2 Management: Screening Mammogram of both breasts in 1 year. . Patient should continue monthly self-breast exams. A clinical breast exam by your physician is recommended on an annual basis. This exam should not preclude additional follow-up of suspicious palpable abnormalities. Note on Grisel scores and lifetime risk: 1. A Grisel score greater than 3% is considered moderate risk. If this is the case, consider specialist referral to assess eligibility for a risk reducing agent. 2. If overall lifetime risk for the development of breast cancer is 20% or higher, the patient may qualify for future screening with alternating mammogram and breast MRI. Electronically signed and approved by: Michelle Meléndez M.D. Radiologist
== END | disposition home or self-care (01) ==
LOC: RADMAMWWP 10:40
PROVIDERS: ATTEND Internal Medicine
DX: Z12.31 Encounter for screening mammogram for malignant neoplasm of breast (principal); N95.1 Menopausal and female climacteric states; M81.0 Age-related osteoporosis without current pathological fracture; M85.89 Other specified disorders of bone density and structure, multiple sites
CPT/HCPCS: 77063; 77067; 77080

== ENCOUNTER 2024-01-16 06:43 | Day surgery (SDC) | payer MEDICARE ==
[2024-01-16] MEDS: LACTATED RINGERS 1,000 ML IV SCH (07:02)
[2024-01-16 07:15] VITALS: RESP 18; TEMP 97.1
[2024-01-16 07:15] LABS: Glucose,Whole Blood 124 mg/dL (70-110)
[2024-01-16] MEDS ORDERED: PROPOFOL 10 MG/ML 20 ML VIAL IV ONE (07:52)
--- NOTE | 2024-01-16 08:16 | P.PCN ---
Date of Procedure: 01/16/24 Procedure(s) Performed: BRIEF HISTORY: Patient is a 73-year-old pleasant white female scheduled for an elective colonoscopy as a part of screening for colorectal neoplasia. PROCEDURE PERFORMED: Colonoscopy with biopsy PREOPERATIVE DIAGNOSIS: Screening for colon cancer. IV sedation per Anesthesia. PROCEDURE: After informed consent was obtained, the patient, was brought into the endoscopy unit. IV sedation was administered by Anesthesia under continuous monitoring. Digital rectal examination was normal. Initially the Olympus CF-160 flexible video colonoscope was then inserted in the rectum, gradually advanced into the cecum without any difficulty. Careful examination was performed as the scope was gradually being withdrawn. Ileocecal valve and the appendiceal orifice were visualized and appeared normal. Prep was excellent. Mucosa of the cecum, appeared normal. In descending colon there was a 3 mm polyp that was removed by cold biopsy. Rest of the ascending colon, transverse colon, descending colon, sigmoid colon, and rectum appeared normal. Moderate sigmoid diverticulosis. Retroflexion was performed in the rectum and no lesions were seen. The patient tolerated the procedure well. IMPRESSION: 3 mm ascending colon polyp s/p removal by cold biopsy Moderate sigmoid diverticulosis RECOMMENDATIONS: Findings of this examination were discussed with the patient as well as her family. She was advised to follow-up with the biopsy results. If the biopsy reveals adenoma she can have repeat colonoscopy in 5 years.
[2024-01-16 08:47] VITALS: BP 141/67; PULSE 75
== END 2024-01-16 09:10 | disposition home or self-care (01) ==
LOC: ORWHC2ENDO 06:43
PROVIDERS: ATTEND Internal Medicine Gastroenterology
DX: Z12.11 Encounter for screening for malignant neoplasm of colon (principal); K63.5 Polyp of colon; K57.30 Diverticulosis of large intestine without perforation or abscess without bleeding; E07.9 Disorder of thyroid, unspecified; E11.9 Type 2 diabetes mellitus without complications; F17.210 Nicotine dependence, cigarettes, uncomplicated; K21.9 Gastro-esophageal reflux disease without esophagitis; Z79.890 Hormone replacement therapy; Z79.899 Other long term (current) drug therapy; Z98.51 Tubal ligation status; Z88.8 Allergy status to other drugs, medicaments and biological substances; Z88.1 Allergy status to other antibiotic agents
CPT/HCPCS: 88305; 45380; J2704

== ENCOUNTER → 2024-07-29 | Outpatient (CLI) | payer MEDICARE ==
--- NOTE | 2024-07-31 23:23 | XR ---
EXAMINATION TYPE: XR chest 2V DATE OF EXAM: 07/29/2024 1:18 PM COMPARISON: None. CLINICAL INDICATION: Female, 74 years old with history of R05.3, M54.9, TECHNIQUE: XR chest 2V view(s) obtained. FINDINGS: The heart size is normal. The pulmonary vasculature is normal. The lungs are clear. Scoliosis at thoracolumbar junction IMPRESSION: 1. No acute pulmonary process. [facility], , 07/31/2024 11:21 PM
--- NOTE | 2024-08-03 14:11 | XR ---
EXAMINATION TYPE: XR thoracic spine complete DATE OF EXAM: 07/29/2024 1:19 PM COMPARISON: None. CLINICAL INDICATION: Female, 74 years old with history of R05.3, M54.9, TECHNIQUE: 3 view(s) obtained. FINDINGS: 12 thoracic type vertebral bodies. Pedicles are intact. Some mild diffuse disc space narrowing is pre sent through the thoracic spine greatest in the midportion at T7-8. Vertebral body heights are preser clifton. Spondylosis is present. IMPRESSION: 1. Degenerative disc changes greatest at T7-8. 2. Spondylosis [facility], , 08/03/2024 2:09 PM
== END | disposition home or self-care (01) ==
LOC: RADXRMAIN 12:50
PROVIDERS: ATTEND Internal Medicine
DX: M47.814 Spondylosis without myelopathy or radiculopathy, thoracic region (principal); R05.3 Chronic cough
CPT/HCPCS: 71046; 72072

== ENCOUNTER → 2025-02-26 | Outpatient (CLI) | payer MEDICARE ==
--- NOTE | 2025-02-26 17:29 | CTL ---
EXAMINATION TYPE: CT Low Dose Lung DATE OF EXAM: 02/26/2025 5:09 PM COMPARISON: 07/09/2019. CLINICAL INDICATION: Female, 74 years old with history of Z12.2 LUNG CANCER SCRN, F17.210; 1 ppd x 50 years, history of tobacco use. TECHNIQUE: Multiple axial non-contrast scans were obtained from approximately the lung apices through the upper abdomen. Coronal and sagittal reformatted images were obtained. Low dose technique was uti lized. MIP were created on a separate workstation and submitted for review. CT DLP: 77.3 mGycm, Automated exposure control for dose reduction was used. CT Contrast: Contrast used: None Oral contrast used: None FINDINGS: Lack of intravenous contrast and low dose technique limits the evaluation of the vascular and soft ti ssue structures. LUNGS: No evidence of pulmonary fibrosis. No evidence of focal consolidation, pneumothorax or pleural effusion. Centrilobular emphysema changes. Nodules: RUL: None. RML: None. RLL: 2 mm series 3 image 1:15.. DUYEN: None. LLL: None. AIRWAY: Patent and unremarkable. HEART: Size within normal limits. Moderate coronary artery calcifications present. MEDIASTINUM: No gross evidence of adenopathy. VASCULATURE: No aortic aneurysm. MUSCULOSKELETAL: Moderate disc degeneration changes are present throughout the thoracolumbar spine., T5 vertebral body sclerotic lesion measuring 9 mm previously 5 mm on 07/09/2019. Measuring 1300 Houns field units SOFT TISSUES/LYMPH NODES: Unremarkable. LOWER NECK: No significant findings. UPPER ABDOMEN: Gallstones within the gallbladder lumen. IMPRESSION: 1. No clinically significant pulmonary nodules. 2. Mild emphysema. 3. Cholelithiasis. 4. Moderate coronary artery atherosclerosis. 5. Increasing size of sclerotic lesion in the T5 vertebral body which is most compatible with enosto sis/bone island. CT LUNG RAD AND CT CHEST RECOMMENDATION: Lung-Rad 2 Benign Appearance or Behavior: Continue annual sc reening with LDCT in 12 months. S Modifier (other clinically significant findings): None Recommend smoking cessation (if current smoker), or continuation of smoking cessation (if prior smoke r). Annual screening for lung cancer with low-dose computed tomography is recommended in adults ages 55 to 77 years who have a 30 pack-year smoking history and currently smoke or have quit within the pa st 15 years. Screening should be discontinued once a person has not smoked for 15 years or develops a health problem that substantially limits life expectancy or the ability or willingness to have curat laura lung surgery. Lung rads 2021 [email or web address] [facility], , 02/26/2025 5:27 PM
== END | disposition home or self-care (01) ==
LOC: RADCTMAIN 15:58
PROVIDERS: ATTEND Internal Medicine
DX: Z12.2 Encounter for screening for malignant neoplasm of respiratory organs (principal); F17.210 Nicotine dependence, cigarettes, uncomplicated; J43.9 Emphysema, unspecified; K80.20 Calculus of gallbladder without cholecystitis without obstruction; I25.10 Atherosclerotic heart disease of native coronary artery without angina pectoris
CPT/HCPCS: 71271